=== PATIENT | male | born 1940 | race Caucasian/White ===

== ENCOUNTER 2016-10-23 16:24 | Inpatient (IN) | payer OTHER ==
[2016-10-23 17:17] LABS: MANUAL DIFF NEEDED? NO
[2016-10-23 17:23] LABS: BASO% 0.3 % (0.0-0.8); EOS# 0.02 X1000 (0.0-0.7); EOS% 0.2 % (0.0-10.0); HEMATOCRIT 32.3 % (42.0-52.0); HEMOGLOBIN 11.1 g/dL (14.0-18.0); IMM GRAN# 0.41 X1000 (0.0-0.04); LYMPH# 1.03 X1000 (1.2-3.4); LYMPH% 10.1 % (20.5-51.1); MCHC 34.4 g/dL (33-37); MCV 87.3 FL (81-99); MONO# 0.84 X1000 (0.11-0.59); MONO% 8.2 % (1.7-9.3); MPV 9.4 FL (7.4-10.4); NEUT% 77.2 % (42.2-75.2); PLT 378 X1000 (130-400)
[2016-10-23 17:34] LABS: INR 1.56; PROTIME 16.6 Seconds (9.2-11.7); PTT 34.9 Seconds (22.0-36.0)
[2016-10-23 17:49] LABS: ALBUMIN 3.7 g/dL (3.5-5.0); CALCIUM 8.1 mg/dL (8.8-10.2); MAGNESIUM 1.8 mg/dL (1.5-2.7); POTASSIUM 3.5 mmol/L (3.5-5.1); TOTAL BILIRUBIN 2.14 mg/dL (0.20-1.00)
--- NOTE | 2016-10-23 17:53 | PROVIDER DOCUMENTATION ---
HPI-Musculoskeletal Pain/Inj - GENERAL Chief Complaint: Fall Stated Complaint: DIZZY SPELLS Time Seen by Provider: 10/23/16 16:36 Source: patient, family - HX OF PRESENT ILLNESS-MUSKULOSKELTAL Nature of Presenting Problem: 76 year old WM presents with c/o right flank pain, diffuse abd pain and low back pain. pt reports he has had 3 falls in the last 2-3 weeks from dizziness. last fall was yesterday. pt reports he feels like the room is spinning prior to the falls. denies CP, shortness of breath, difficulty breathing prior to fall. pt in triage has diffuse ecchymosis to entire back, a 15cm by 20cm hematoma to the right flank region. pt reports he was on counmadin until last week when he was evaluated for a fall and told to stop taking. Quality of Pain: reports: aching, dull Severity in ED: mild Onset/Duration: 24 hours ago, other (see HPI) Timing: still present, constant Modifying Factors: improves with: nothing Any recent injury?: Yes Locality of Occurance: Home Similar Symptoms Previously?: Yes Recently seen or treated by another doctor?: Yes - FALL INJURY Location of Pain/Injury: reports: abdomen, back (flank), upper body, lower body , generalized. denies: neck Pain Radiation: reports: no radiation Reason for Fall: reports: other (dizziness) Symptoms prior to fall:: reports: dizzy/lightheaded. denies: fever/chills/ sweaty, chest pain, rapid heart rate, cough, diarrhea, vomiting, GI bleed, headache, seizure Loss of Consciousness: no loss of consciousness Injury Associated Symptoms: reports: dizziness. denies: back/neck pain, chest pain, diaphoresis, headaches, joint pain, muscle aches, nausea, shortness of breath, sensory/motor loss, vomiting, weakness, trouble walking - TRUNK INJURY Location of Injury(s)/Pain: reports: chest, abdomen, ribs, extends to back, generalized Context / Method of Injury: reports: fall, recent trauma history Associated Symptoms: reports: back/neck pain Review of Systems - Adult - REVIEW OF SYSTEMS - ADULT Constitutional: reports: no symptoms reported. denies: chills, fever, fatique Eyes: reports: no symptoms reported. denies: discharge, blurred vision, double vision, redness Ears, Nose, Mouth & Throat: reports: no symptoms reported. denies: ear discharge, ear pain, nose pain, loose teeth, throat pain, throat swelling Cardiovascular: reports: no symptoms reported. denies: chest pain, palpitations , syncope Respiratory: reports: no symptoms reported. denies: chronic cough, cough, shortness of breath, wheezing Gastrointestinal: reports: see HPI, abdominal pain. denies: hematemesis, constipation, diarrhea, difficulty swallowing, frequent heartburn, nausea, poor appetite, rectal bleeding, vomiting Genitourinary: reports: no symptoms reported. denies: dysuria, hematuria, urgency Musculoskeletal: reports: see HPI, back pain. denies: bone pain, frequent leg cramps, joint pain, joint swelling, muscle aches, muscle weakness, neck pain Integumentary: reports: see HPI, skin sores/ulcer. denies: hives, rash Neurological: reports: see HPI, dizziness/vertigo. denies: ataxia, headache/ migraines, loss of balance, numbness, paresthesia, seizure, slurred speech, syncope, tremors Psychiatric: reports: no symptoms reported Endocrine: reports: no symptoms reported Hematologic/Lymphatic: reports: no symptoms reported Allergic/Immunologic: reports: no symptoms reported All Other Systems: Reviewed and Negative Past History - Adult - PAST MEDICAL HISTORY-ADULT Review of Records: reports: Old Records Reviewed, Nursing Assessment Review, Medications Reviewed, Social history reviewed & non-contributory. Major Childhood Illnesses: reports: denies history Cardiovascular: reports: A-Fib, CHF, HTN, hyperlipidemia, PR, other (Stents) Respiratory: reports: COPD (home 02 prn) Gastrointestinal: reports: GERD Obstetrical/Gynecological: reports: denies history Genitourinary: reports: kidney disease Musculoskeletal: reports: denies history Neurological: reports: CVA Endocrine/Immune: reports: Diabetes Other Conditions: reports: denies history - PRIOR SURGERIES/PROCEDURES Surgical/Procedure History: reports: cardiac stent, hernia repair, other (TURP) - PRIOR HOSPITALIZATIONS Prior Hospitalizations: reports: other (Unknown ) - IMMUNIZATION STATUS Childhood Immunizations: UTD, See Nurse Assessment Flu Vaccine: See Nurse Assessment - FAMILY HISTORY Family History: reviewed, not pertinent - SOCIAL HISTORY Smoking: quit greater than 1 year, cigarettes Substance Use: none/never Alcohol Use Frequency: sober (former use) Physical Exam-Injury Related - Physical Exam-Injury Related Initial Vital Signs Reviewed: Yes General Appearance: appears well, alert, no apparent distress. negative: mild distress, moderate distress, severe distress, lethargic, slow to respond, obtunded, combative Eyes: PERRL/EOMI, pale conjunctivae. negative: pink conjunctivae, conjuctival exudate, sclera injected, scleral icterus, subconjunctival hemorrhage, sunken eyes Head, Ears, Nose, Mouth & Throat: normocephalic/atraumatic, moist mucous membranes, normal ENT inspection, TMs normal, pharynx normal. negative: pharyngeal erythema, tonsillar exudate, TM abnormal, TM obscurred by cerumen Neck: non-tender, full range of motion, supple, normal inspection. negative: C- spine tenderness, decresed ROM, ecchymosis, limited range of motion, pain on movement, subcutaneous emphysema, swelling, tender lateral, tender midline, vertebral point tenderness Respiratory: chest non-tender, lungs clear, normal breath sounds, no pleuratic chest pain, no respiratory distress, no accessory muscle use. negative: respiratory distress, decreased breath sounds, accessory muscle use, crackles, rales, rhonchi, stridor, wheezing Cardiovascular: normal peripheral pulses, regular rate, rhythm, no edema, no gallop, no JVD, no murmur Chest/Breast: tenderness (diffuse) Peripheral Pulses: radial (R): 3+, radial (L): 3+, dorsalis-pedis (R): 3+, dorsalis-pedis (L): 3+ Abdominal Exam: normal bowel sounds, non tender, soft, no organomegaly, no pulsatile mass, tenderness. negative: distended, guarding, rigid, rebound, hernia, mass, hepatomegaly, spleenomegaly, McBurney's point tenderness, Arboleda' s sign, obturator sign, prominent aortic pulsations, psoas, Rovsing's sign Male Genitalia: deferred Rectal Exam: deferred Hemoccult Exam: deferred Lymphatic: no adenopathy Back Exam: CVA tenderness, decreased range of motion, ecchymosis (diffuse ecchymosis to entire back region; 15cm by 20cm hematoma to right flank region). negative: normal inspection, vertebral tenderness Extremity: normal range of motion, non-tender, normal gait, normal inspection, no pedal edema, no calf tenderness, normal capillary refill, pelvis stable. negative: abnormal NV exam, calf tenderness, deformity, erythema, inflammation, joint effusion, pulse deficit, pedal edema, slow capillary refill, swelling, tenderness Integumentary: warm/dry, ecchymosis. negative: normal color Neurologic: grossly normal, no motor/sensory deficits. negative: focal weakness , motor weakness, sensory deficit Psych/Mental Status: normal mood/affect, normal thought content, normal thought process, oriented x 3 - Glascow Coma Score Best Eye Response ([place]): (4) open spontaneously Best Verbal Response ([place]): (5) oriented Best Motor Response ([place]): (6) obeys commands [place] Total: 15 Progress - PLAN OF CARE/RESULTS Progress/Plan/Lab Results: Laboratory Tests 10/23/16 10/23/16 10/23/16 16:50 16:50 16:50 WBC 10.19 RBC 3.70 L Hgb 11.1 L Hct 32.3 L MCV 87.3 MCH 30.0 MCHC 34.4 RDW Std Deviation 16.3 H Plt Count 378 MPV 9.4 Immature Gran % (Auto) 4.0 H Neut % (Auto) 77.2 H Lymph % (Auto) 10.1 L Dawson % (Auto) 8.2 Eos % (Auto) 0.2 Baso % (Auto) 0.3 Immature Gran # (Auto) 0.41 H Neut # (Auto) 7.86 H Lymph # (Auto) 1.03 L Dawson # (Auto) 0.84 H Eos # (Auto) 0.02 Baso # (Auto) 0.03 PT INR PTT (Actin FS) D-Dimer 1.06 H Sodium 127 L Potassium 3.5 Chloride 88 L Carbon Dioxide 26 Anion Gap 13 BUN 31 H Creatinine 2.0 H Estimated GFR/1.73 m2 32 BUN/Creatinine Ratio 16 Glucose 264 H Calculated Osmolality 271 Calcium 8.1 L Magnesium 1.8 Total Bilirubin 2.14 H AST 11 ALT 7 L Alkaline Phosphatase 106 Creatine Kinase 42 Troponin T Qvc-K-Pslcyyfsbae Pept Total Protein 6.0 L Albumin 3.7 Globulin 2.3 Albumin/Globulin Ratio 1.6 Blood Type Antibody Screen 10/23/16 10/23/16 10/23/16 16:50 16:50 16:50 WBC RBC Hgb Hct MCV MCH MCHC RDW Std Deviation Plt Count MPV Immature Gran % (Auto) Neut % (Auto) Lymph % (Auto) Dawson % (Auto) Eos % (Auto) Baso % (Auto) Immature Gran # (Auto) Neut # (Auto) Lymph # (Auto) Dawson # (Auto) Eos # (Auto) Baso # (Auto) PT 16.6 H INR 1.56 PTT (Actin FS) 34.9 D-Dimer Sodium Potassium Chloride Carbon Dioxide Anion Gap BUN Creatinine Estimated GFR/1.73 m2 BUN/Creatinine Ratio Glucose Calculated Osmolality Calcium Magnesium Total Bilirubin AST ALT Alkaline Phosphatase Creatine Kinase Troponin T 0.010 [id number]-[id number]-Pdyhtvqdiqg Pept 3991 H Total Protein Albumin Globulin Albumin/Globulin Ratio Blood Type Antibody Screen 10/23/16 16:50 WBC RBC Hgb Hct MCV MCH MCHC RDW Std Deviation Plt Count MPV Immature Gran % (Auto) Neut % (Auto) Lymph % (Auto) Dawson % (Auto) Eos % (Auto) Baso % (Auto) Immature Gran # (Auto) Neut # (Auto) Lymph # (Auto) Dawson # (Auto) Eos # (Auto) Baso # (Auto) PT INR PTT (Actin FS) D-Dimer Sodium Potassium Chloride Carbon Dioxide Anion Gap BUN Creatinine Estimated GFR/1.73 m2 BUN/Creatinine Ratio Glucose Calculated Osmolality Calcium Magnesium Total Bilirubin AST ALT Alkaline Phosphatase Creatine Kinase Troponin T Ewp-[id number]-Vfvorhcvmtm Pept Total Protein Albumin Globulin Albumin/Globulin Ratio Blood Type A POSITIVE Antibody Screen NEGATIVE Orders Category Date Time Status Cardiac Monitoring DIRECTED Care 10/23/16 16:37 Active Orthostatic Vital Signs NOW Care 10/23/16 16:44 Active Saline Loc NOW Care 10/23/16 16:37 Active HEAD/C-SPINE W/O CONTRAST [CT] Stat Exams 10/23/16 16:56 Draft THORAX/ABDOMEN/PELVIS W/O CONT [CT] Stat Exams 10/23/16 16:56 Taken cxr [CHEST-1 VIEW] [RAD] Stat Exams 10/23/16 19:38 Ordered CBC WITH ELECTRONIC DIFF [HEME] Stat Lab 10/23/16 16:50 Completed CK PROFILE [SP CHEM] Stat Lab 10/23/16 16:50 Completed COMPREHENSIVE METABOLIC PANEL [CHEM] Stat Lab 10/23/16 16:50 Completed D-DIMER [CHEM] Stat Lab 10/23/16 16:50 Completed MAGNESIUM [CHEM] Stat Lab 10/23/16 16:50 Completed PRO B-NATRIURETIC PEPTIDE Stat Lab 10/23/16 16:50 Completed PROTIME WITH INR [COAG] Stat Lab 10/23/16 16:50 Completed PTT [COAG] Stat Lab 10/23/16 16:50 Completed TROPONIN T Stat Lab 10/23/16 16:50 Completed TYPE & SCREEN [BBK] Stat Lab 10/23/16 16:50 Completed 0.9% Sodium Chloride Inj [Ns] 1,000 ml Med 10/23/16 19:39 Active IV 150 mls/hr EKG [EKG] Stat Ther 10/23/16 16:37 Ordered Vital Signs - 24 hr 10/23/16 10/23/16 10/23/16 16:40 18:30 18:47 Temperature 98.2 F Pulse Rate 65 58 L Pulse Rate [ 59 L Sitting] Pulse Rate [ 59 L Supine] Respiratory 14 Rate Blood Pressure 122/64 123/71 Blood Pressure 99/64 [Sitting] Blood Pressure 121/64 [Supine] O2 Sat by Pulse 100 100 Oximetry Reviewed radiology, labs, H&P with Dr. Huntley, agrees with plan of care and treatment. - XRAY 1 XRAY Study: Chest Impression: Abnormal (RUL mass) - CT/MRI 1 CT Study: Thorax Impression: Abnormal (see CT report for extensive findings.) 2 CT Study: Abdomen, Pelvis Impression: Abnormal (see report for extensive findings.) - CONSULTS/PCP/HOSPITALIST Notification #1 *Consult/PCP/Hospitalist*: Dr. Rodriguez Time Discussed: 19:50 Consult Disposition: Will see in ED, Admit Departure - Departure Time of Disposition Order: 19:51 DIAGNOSIS: Hyponatremia, Mass Fall Qualifiers: Encounter type: initial encounter Qualified Code(s): W19.XXXA - Unspecified fall, initial encounter Disposition: ADMITTED INPATIENT 09 Certified Medical Emergency: Emergent Condition: Stable Referrals: Susana Gonzalez MD [Primary Care Provider] - Attestation - Physician/ EKTA Attestation Patient care was provided by Advanced Practice Provider:: Yes Advanced Practice Provider:: Johnny Garsia Advanced Practice Provider documentation review:: The Mid-level provider documentation, treatment plan and medical decision making was reviewed by the physician who agrees with all treatment and medical decision making by the [facility].
--- NOTE | 2016-10-23 19:07 | ED EKG INTERP ---
EKG Interpretation - EKG Time of EKG reading by physician:: 19:04 EKG Read and Signed by:: Skyler Huntley EKG Interpretation (*Must complete 3 of following elements*): Abnormal (ST & T wave abnormality, consider lateral ischemia Possible posterior infarct; Wayne rhythm - When compared to previous EKG from 10/13/2016) Rate: 61 Rhythm: Undetermined rhythm Attestation - Scribe Verification/Attestation Scribe:: Dmitri Garcia Acting as Scribe for:: Skyler Huntley Scribe documention review:: This chart was documented by a scribe and accurately reflects the service the provider performed and the decisions made by the provider.
[2016-10-23] MEDS ORDERED: NS 1,000 ML IV ONE (19:39)
--- NOTE | 2016-10-23 19:51 | Diag Imaging Result Document ---
PROCEDURE NAME: HEAD/C-SPINE W/O CONTRAST - 10/23/2016 CT BRAIN AND CERVICAL SPINE WITHOUT CONTRAST: BRAIN WITHOUT: FINDINGS: No parenchymal hemorrhage. No epidural or subdural hematoma. No subarachnoid hemorrhage. No skull fracture. There is mild atrophy with mild chronic microvascular ischemic changes. No hydrocephalus. No mass identified on this noncontrasted exam. Prominent mucosal thickening in the left maxillary sinus. IMPRESSION: 1. No hemorrhage. No injury. 2. Mild atrophy with mild microvascular ischemic changes. 3. Left maxillary sinusitis. CT CERVICAL SPINE WITHOUT CONTRAST: FINDINGS: There are prominent degenerative changes throughout the cervical spine. No precervical soft tissue swelling. No subluxation. No fracture. IMPRESSION: 1. No acute bony injury. 2. Prominent degenerative changes. A preliminary report was given at 6:41 p.m.
--- NOTE | 2016-10-23 20:00 | Diag Imaging Result Document ---
PROCEDURE NAME: THORAX/ABDOMEN/PELVIS W/O CONT - 10/23/2016 CT CHEST WITHOUT CONTRAST: FINDINGS: There are scattered calcified pleural plaques with scattered granuloma. A 17 mm spiculated lesion is present posteriorly in the right upper lobe. No pleural effusions. No thoracic aortic aneurysm. Prominent atherosclerosis including the coronary arteries. No cardiomegaly. No displaced acute fracture. Questionable subacute fracture to the right anterior seventh rib. No other injury identified. IMPRESSION: 1. There is a 17 mm spiculated mass in the right upper lobe. 2. There is evidence of a prior granulomatous infection, in addition to mild emphysema. 3. Questionable subacute right rib fracture. No other evidence of acute injury. 4. Prominent atherosclerosis. ABDOMEN AND PELVIS WITHOUT ORAL OR INTRAVENOUS CONTRAST. FINDINGS: Exam is limited for injury without intravenous contrast. Unable to exclude an injury to the liver and spleen without intravenous contrast. There is no fluid about the liver or spleen. The spleen is not enlarged. There is a 13 mm fat containing nodule in the left adrenal gland. Normal right adrenal gland. No inflammation about the pancreas. There is a calcified stone within the gallbladder. No inflammation about the gallbladder. This was present on the prior study of 04/06/2016. There are several small hypodense renal lesions which may be cysts in addition to a 4.4 cm cyst arising from the posterior right kidney. No retroperitoneal hematoma. No renal stones. No hydronephrosis. Prominent atherosclerosis. No abdominal aortic aneurysm. No bowel obstruction. No free fluid within the pelvis. The urinary bladder is moderately distended. No pelvic mass. No free air. There are degenerative changes throughout the lumbar spine. No acute fracture. IMPRESSION: 1. Although no acute injury is identified, I am unable to exclude an acute injury without intravenous contrast. 2. Cholelithiasis. 3. Stable left adrenal nodule. 4. Renal cysts. 5. Degenerative spine changes with mild scoliosis. A preliminary report was given at 6:41 p.m.
--- NOTE | 2016-10-23 23:27 | HISTORY AND PHYSICAL ---
PRIMARY CARE PHYSICIAN: Dr. Gonzalez. CHIEF COMPLAINT: Fall. HISTORY OF PRESENTING ILLNESS: A 76-year-old male with a history of chronic kidney disease stage 3, diabetes mellitus type 2, hypertension, paroxysmal atrial fibrillation apparently had a fall several days ago and had some hematoma on is back. He had presented to emergency department because he felt worse and he was evaluated. He had imaging done which did also show that he had a right upper lobe lung mass. Due to these presenting findings it was thought that he would need hospitalization for further evaluation and management. At the time of my examination he had denied any headache, fever, chills, chest pain, shortness of breath, hemoptysis or weight changes but just complained of back pain. PAST MEDICAL HISTORY: Includes chronic kidney disease stage 3, hypertension, diabetes mellitus type 2, coronary artery disease, paroxysmal atrial fibrillation, CVA. PAST SURGICAL HISTORY: Coronary stent, TURP, hernia repair. ALLERGIES: To amoxicillin, Augmentin. CURRENT MEDICATIONS: As listed in MAR. SOCIAL HISTORY: He is a former smoker. Admits to social alcohol use. Denies any illicit drug use. FAMILY HISTORY: Positive for coronary disease mother and father. REVIEW OF SYSTEMS: Twelve point review of systems is as in HPI. Other systems negative. PHYSICAL EXAMINATION: GENERAL: Cooperative, friendly male. He is resting comfortably now. VITAL SIGNS: Temperature 98.2 degrees, pulse 65, respiration 14, blood pressure 112/64, saturating 100%. HEENT: Extraocular movements intact. PERRLA. NECK: No masses. CHEST: Bibasilar rales. CARDIOVASCULAR: Regular rate and rhythm. ABDOMEN: Soft. Positive bowel sounds. EXTREMITIES: No edema. NEURO: He is awake, alert, oriented x3. : No bladder distention. SKIN: Warm and multiple hematomas on his back LABORATORIES AND STUDIES: WBC 10.19, hemoglobin 11.1, hematocrit 32.3, platelets 378,000. Sodium 127, potassium 3.5, chloride 88, CO2 of 26, BUN is 31, creatinine is 2.0. ProBNP is 3991. Digitalis level is 2.1. CTA of the chest, abdomen, pelvis shows a 70 mm spiculated mass in the right upper lobe and there is a possible subacute rib fracture on the right side. ASSESSMENT: 1. Status post fall. 2. Rib fracture of the right side. 3. Hematoma on back. 4. Right upper lobe lung mass. 5. Diabetes mellitus type 2. 6. Hyponatremia PLAN: 1. Will admit patient to medical floor. 2. Continue with support treatment with pain control. 3. Will consult Pulmonary for evaluation of lung mass. 4. Monitor blood glucose closely. 5. Will continue to hold his anticoagulation for his atrial fibrillation due to hematoma. 6. Put patient on DVT prophylaxis with SCD. 7. Please note that the rib fracture is in the anterior 7th rib. 8. fluid restrict PO, and monitor electrolytes 9. Will continue to follow and reassess. MTDD
[2016-10-24] MEDS ORDERED: ZOFRAN IV PRN (01:09)
[2016-10-24 05:47] LABS: MANUAL DIFF NEEDED? NO
[2016-10-24 05:51] LABS: BASO% 0.4 % (0.0-0.8); EOS# 0.07 X1000 (0.0-0.7); EOS% 0.7 % (0.0-10.0); HEMOGLOBIN 10.4 g/dL (14.0-18.0); IMM GRAN# 0.38 X1000 (0.0-0.04); IMM GRAN% 3.8 % (0.0-0.5); LYMPH# 1.52 X1000 (1.2-3.4); LYMPH% 15.2 % (20.5-51.1); MCH 29.5 PG (27-31); MCHC 33.5 g/dL (33-37); MCV 88.1 FL (81-99); MONO# 0.96 X1000 (0.11-0.59); MONO% 9.6 % (1.7-9.3); MPV 9.2 FL (7.4-10.4); NEUT% 70.3 % (42.2-75.2); PLT 325 X1000 (130-400); RBC 3.52 XMIL (4.7-6.1)
[2016-10-24 06:01] LABS: INR 1.45; PROTIME 15.4 Seconds (9.2-11.7)
[2016-10-24] MEDS: SYNTHROID PO SCH (06:28)
[2016-10-24 06:30] LABS: CALCIUM 8.6 mg/dL (8.8-10.2)
--- NOTE | 2016-10-24 06:50 | Diag Imaging Result Document ---
PROCEDURE NAME: CHEST-1 VIEW - 10/23/2016 PORTABLE CHEST 2 VIEWS: COMPARISON: 10/13/2016. FINDINGS: The lungs are hyperexpanded. The nodule seen on the recent CT in the right upper lobe is not appreciated on the plain films. Heart is not enlarged. The pulmonary vessels are small. No pleural effusions. No pneumonia. IMPRESSION: 1. Emphysema. 2. I do not see the nodule on the plain films that was recently identified on the prior CT. MTDD
[2016-10-24] MEDS ORDERED: FLUZONE QUAD 2016-2017 SYRINGE IM ONE (07:59)
[2016-10-24] MEDS ORDERED: DEMADEX PO SCH (09:00)
[2016-10-24] MEDS ORDERED: CARDIZEM CD PO SCH (09:00)
[2016-10-24] MEDS ORDERED: LANOXIN PO SCH (09:00)
[2016-10-24] MEDS: LEXAPRO PO SCH (10:49)
[2016-10-24] MEDS: ROCALTROL PO SCH (10:49)
[2016-10-24 14:45] LABS: HEMATOCRIT 30.5 % (42.0-52.0); HEMOGLOBIN 10.4 g/dL (14.0-18.0); MCH 30.2 PG (27-31); MCHC 34.1 g/dL (33-37); MCV 88.7 FL (81-99); MPV 8.9 FL (7.4-10.4); RBC 3.44 XMIL (4.7-6.1)
--- NOTE | 2016-10-24 15:29 | PROGRESS NOTE ---
DATE: 10/24/2016 SUBJECTIVE: The patient is complaining of having dizziness still and generalized weakness. He has been falling several times within the past 2 weeks, has a huge hematoma on the right back. The patient stated that he could not walk one wall to the next because of the dizziness. As long as he is sitting still, he is feeling well. He denies having any fever or chills. Denies having any recent sickness or sick contact. He fell and broke 1 of his ribs and causing bruises on his back and his chest as well as his abdomen. OBJECTIVE: Vital signs: Blood pressure 122/55, pulse of 50 to 52, respiration 18, temperature 97.8 degrees. Saturation of 100% on room air. General: Thin white male in no acute distress. HEENT: Anicteric sclerae. Clear conjunctivae. Neck: Supple. No JVD. No bruit. Cardiovascular: Bradycardic. Chest, abdomen and back: Bruises at different stages of healing. Tender to palpation. Has a large hematoma that is about 20 x 20 cm on the right back. Lungs: Clear to auscultation bilaterally. GI: Soft, nontender even though he has had bruise. Lower extremity: No clubbing, cyanosis, or edema. LABORATORY: His white count 9.98, hemoglobin 10.4, hematocrit 31, platelets of 325,000. PT/INR noted. Sodium 133, potassium 4, chloride 92, bicarb 26, BUN 31, creatinine 1.9, glucose 106, proBNP 3991. ASSESSMENT AND PLAN: This is a 76-year-old white male admitted for recurrent falling, dizziness and lightheadedness. 1. Dizziness and lightheadedness probably secondary to his bradycardia. We will hold his digoxin and diltiazem. His digoxin level is elevated. We will recheck his level tomorrow. We will readjust his medication for his rate control. 2. Falling, may be secondary to her bradycardia. We will consult Physical Therapy. We will admit the patient to inpatient service. He needs to be here for several days for us to adjust his medications, and he still has symptomatic bradycardia. 3. We stopped his warfarin as a major contraindication since he is having falling. 4. Diabetes type 2. Start the patient on sliding scale insulin. 5. History of heart failure. We will keep him on torsemide for now and we will continue to follow the patient closely in house because of physical therapy.
[2016-10-24] MEDS: ALBUTEROL NEB INH SCH ×2 (16:49→23:02)
--- NOTE | 2016-10-24 17:05 | CONSULTATION ---
DATE OF CONSULTATION: 10/24/2016 CONSULTING PHYSICIAN: PRIMARY CARE PHYSICIAN: Susana Gonzalez MD PRIMARY LOAN SERVICE OFFICER: Bradly Browne MD SALES COMPENSATION ANALYST: Franco Her MD REASON FOR CONSULT: Right upper lobe chest mass with associated frequent falls and weight loss and weakness. IMPRESSION: 1. Right upper lobe posterior segment chest mass. 2. Chronic obstructive pulmonary disease. 3. Atrial fibrillation. 4. Weight loss of approximately 38 pounds since June. 5. Congestive heart failure. 6. Chronic kidney disease. RECOMMENDATIONS: He will have his Coumadin held and at the present time consult Interventional Radiology for a CT fine-needle aspiration of the mass. Continue and give him some inhaled beta agonists. Monitor his cardiac status closely and follow along with you closely. We will also check a thyroid profile. HISTORY OF PRESENT ILLNESS: This is an extremely pleasant 76-year-old, male, who has had failing health over the last several months. He states he has had some bouts of falls where he states he has some blurred vision and dizziness. He was this past mid June years with his life who was in a residential. He lives alone and he states he has been on and off his Coumadin secondary to the difficulty keeping it regulated. He fell this time in his room, tripped over a box of books and landed on the lower portion of the mirror on a dresser-type furniture where he has developed a large right posterior hematoma with bruising on the left chest and around his abdomen. He presented to the hospital secondary to this and overall weakness. PAST MEDICAL HISTORY: Stage 3 chronic kidney disease. Paroxysmal atrial fibrillation. CVA. Diabetes mellitus type 2. Hypertension. Ischemic heart disease. Hypothyroidism. SURGICAL HISTORY: He has had a coronary stent, TURP and a hernia repair. ALLERGIC: Amoxicillin and Augmentin. HOME MEDICATIONS: Allopurinol, atorvastatin, Calcitrol, Lexapro, Synthroid, Demadex. Apparently he had Cardizem CD, Lanoxin, all daily. He does have oxygen at home 2 L he uses as needed as well as an inhaler, he is not sure of which, for mild COPD. SOCIAL HISTORY: He lives alone. He is a former smoker of three packs a day up to 35 years, having quit 35 years ago. He again is , had a 38 pound weight loss. Social alcohol. No illicit drug use. FAMILY HISTORY: Positive for coronary artery disease in mother and father. REVIEW OF SYSTEMS: Positive for the blurred vision and some dizziness. He denies any headaches. No difficult or painful swallowing. No nausea, vomiting, diarrhea. No dysuria, polyuria, just general weakness. No skin rashes or bruises other than the fall. No history of blood clots or phlebitis. Fourteen point review of systems is negative except for the features mentioned above. PHYSICAL EXAMINATION: General: He is sitting up, in no acute distress on room air. Vital signs: He has a temperature of 97.8, pulse of 52, blood pressure is 122/55 with a respiratory rate of 18, O2 saturation is 100% on room air. HEENT: He is atraumatic and normocephalic. PERRLA. Oral mucosa is without erythema. Neck: Supple. No JVD. Chest: Reveals bilateral equal breath sounds which are clear, but diminished in bases. Cardiac: S1, S2. No appreciable murmur, gallop or rub. Abdomen: Soft, nontender. Positive bowel sounds x4. Extremities: Reveals no cyanosis, clubbing, or edema. Neurologically: Grossly nonfocal. Alert and oriented x3. Skin: Warm and dry. There is a large right posterior hematoma. The left chest is bruised in the posterior area as well as around his abdominal wall is bruised. : He is voiding without difficulty. PERTINENT DATA: The CT of his brain and cervical spine showed no acute bony injury. Prominent degenerative changes. The head with no hemorrhage, some mild atrophy and left maxillary sinusitis. The CT of the chest, abdomen and pelvis was reviewed. There is a 17 mm spiculated mass in the right upper lobe, mild emphysematous changes. Questionable right subacute rib fracture. Prominent atherosclerosis. The abdomen shows stable left adrenal nodule. In comparison, no change from 04/06/2016 renal cyst. Degenerative spine changes and mild scoliosis. Cholelithiasis. Laboratory Data shows a white count of 9.9, hemoglobin 10.4, hematocrit 31, and platelets of 325,000. His INR is down to 1.4 with a PT of 15.4, PTT 34.9. CO2 levels 2.1. Sodium 133, potassium 4, chloride 92, BUN of 31, creatinine 1.9. Calcium 8.6, proBNP 3391. Troponin 0.01. Dictated by LUPE Recio for Shaheen Lopez MD
[2016-10-24] MEDS: HUMALOG SUBQ SCH ×2 (19:17→22:25)
[2016-10-24] MEDS ORDERED: COUMADIN PO SCH (21:00)
[2016-10-24] MEDS: AMARYL PO SCH (22:09)
[2016-10-24] MEDS: LIPITOR PO SCH (22:10)
[2016-10-25] MEDS: SYNTHROID PO SCH ×2 (05:49→17:02)
[2016-10-25 06:27] LABS: MANUAL DIFF NEEDED? NO
[2016-10-25 06:33] LABS: BASO% 0.4 % (0.0-0.8); HEMATOCRIT 30.6 % (42.0-52.0); HEMOGLOBIN 10.3 g/dL (14.0-18.0); IMM GRAN% 2.9 % (0.0-0.5); LYMPH# 1.56 X1000 (1.2-3.4); LYMPH% 14.9 % (20.5-51.1); MCH 29.8 PG (27-31); MCHC 33.7 g/dL (33-37); MCV 88.4 FL (81-99); MONO# 0.83 X1000 (0.11-0.59); MPV 9.4 FL (7.4-10.4); NEUT% 72.8 % (42.2-75.2); PLT 304 X1000 (130-400); RBC 3.46 XMIL (4.7-6.1)
[2016-10-25 06:46] LABS: INR 1.21; PROTIME 12.9 Seconds (9.2-11.7)
[2016-10-25 06:47] LABS: ALBUMIN 3.1 g/dL (3.5-5.0); CALCIUM 8.5 mg/dL (8.8-10.2); POTASSIUM 3.8 mmol/L (3.5-5.1); TOTAL BILIRUBIN 1.75 mg/dL (0.20-1.00); TOTAL PROTEIN 5.2 g/dL (6.3-8.3)
[2016-10-25 06:54] LABS: FREE T4 1.3 ng/dL (0.93-1.70)
[2016-10-25] MEDS: ALBUTEROL NEB INH SCH ×3 (07:50→23:10)
--- NOTE | 2016-10-25 08:06 | Diag Imaging Result Document ---
PROCEDURE NAME: CHEST-1 VIEW - 10/25/2016 ERECT AP PORTABLE CHEST, 10/25/2016 AT 0610 HOURS: FINDINGS: There is since less optimal inspiration than on 10/23/2016. There is increasing opacification of the right base. IMPRESSION: Questionable atelectasis right lower lobe.
[2016-10-25] MEDS ORDERED: DEMADEX PO SCH (09:00)
[2016-10-25] MEDS: ROCALTROL PO SCH (09:04)
[2016-10-25] MEDS: HYGROTON PO SCH (09:04)
[2016-10-25] MEDS: LEXAPRO PO SCH (09:05)
[2016-10-25] MEDS: ALDACTONE PO SCH (09:05)
[2016-10-25] MEDS: AMARYL PO SCH ×2 (09:05→20:07)
[2016-10-25] MEDS: ZYLOPRIM PO SCH (09:05)
[2016-10-25] MEDS: HYTRIN PO SCH (09:09)
[2016-10-25] MEDS: NS 1,000 ML IV SCH ×2 (09:09→23:24)
--- NOTE | 2016-10-25 09:36 | EKG Report ---
Test Performed on : 10/23/2016 4:42:57 PM Test Reason : Chest Pain Blood Pressure : / mmHG Vent. Rate : 061 BPM Atrial Rate : 053 BPM P-R Int : 000 ms QRS Dur : 092 ms QT Int : 504 ms P-R-T Axes : 000 052 114 degrees QTc Int : [address] & T wave abnormality, consider lateral ischemia Abnormal ECG When compared with ECG of 23-OCT-2016 16:42, (Unconfirmed) Current undetermined rhythm precludes rhythm comparison, needs review Unconfirmed Result
[2016-10-25] MEDS: HUMALOG SUBQ SCH ×3 (17:02→20:09)
--- NOTE | 2016-10-25 17:04 | Diag Imaging Result Document ---
PROCEDURE NAME: US RENAL 2 (RETROPER) COMPLETE - 10/25/2016 RENAL ULTRASOUND: COMPARISON: 04/07/2016. FINDINGS: The renal cortical echotexture appears to be somewhat increased bilaterally, which is a nonspecific indicator of medical renal disease. There are a few small cysts involving the left kidney measuring up to 7 mm and there multiple right renal cysts measuring up to 4.7 cm. At the lower pole of the left kidney there is a hypoechoic solid-appearing nodule that measures up to 1.3 cm and is stable. No definite Doppler flow is associated with the mass. No new masses are identified and there is no evidence of hydronephrosis. The urinary bladder is grossly unremarkable. IMPRESSION: 1. Small hypoechoic solid-appearing nodule at the lower pole of the left kidney that appears to be stable in size as compared to the previous study. 2. Bilateral simple-appearing renal cysts as described. 3. Somewhat increased renal cortical echotexture, which is a nonspecific indicator of medical renal disease.
--- NOTE | 2016-10-25 17:44 | PROGRESS NOTE ---
DATE: 10/25/2016 SUBJECTIVE: The patient is resting comfortably in bed. He has no complaints at this time. OBJECTIVE: Vital Signs: Temperature 98.2 degrees, blood pressure 112/58, heart rate 55, respirations 18, O2 saturations 96% on room air. General: This is an elderly, chronically ill- appearing male, lying in bed, in no acute distress. Head: Normocephalic, atraumatic. Heart: S1, S2 normal. Regular rate and rhythm. Lungs: Clear to auscultation bilaterally. No wheezing. No rales. No rhonchi. Abdomen: Positive bowel sounds. Soft, nontender, nondistended. Extremities: No edema. No cyanosis. No calf tenderness. Neurologic: The patient is alert and oriented x3. No focal neurologic deficits noted. LABS: White blood cell count 10, hemoglobin 10, hematocrit 30, platelets 304,000. INR 1.2, sodium 133, potassium 3.8, chloride 95, CO2 28, BUN 37, creatinine 2.1, glucose 104. ASSESSMENT AND PLAN: 1. Right upper lobe mass. We will await further recommendations from Pulmonary regarding possible biopsy. 2. Acute kidney injury on chronic kidney disease stage 3. We will continue with gentle IV fluid hydration. We will check urine electrolytes and a renal ultrasound. 3. Recent fall. The patient states that he has not been falling frequently at home. He reports that he just tripped and fell. 4. Benign prostatic hypertrophy. Continue on terazosin. 5. Diabetes mellitus type 2. Continue on Amaryl. 6. History of gout. Continue on allopurinol. 7. Hypothyroidism. Continue on Synthroid. 8. Paroxysmal atrial fibrillation. The patient's Coumadin is on hold for possible biopsy. The patient is currently rate controlled. 9. Coronary artery disease. Aware. 10. Disposition. We will await further recommendations from the edge grinder machine regarding the patient's lung mass.
[2016-10-25] MEDS: LIPITOR PO SCH (20:07)
[2016-10-26 04:04] LABS: UR CREAT RANDOM 66.6 mg/dL (14-26)
[2016-10-26 04:25] LABS: UR PROT RANDOM 4.7 mg/dL
[2016-10-26 06:13] LABS: HEMATOCRIT 30.2 % (42.0-52.0); HEMOGLOBIN 9.9 g/dL (14.0-18.0); MCH 30.3 PG (27-31); MCHC 32.8 g/dL (33-37); MCV 92.4 FL (81-99); MPV 9.3 FL (7.4-10.4); RBC 3.27 XMIL (4.7-6.1)
[2016-10-26] MEDS: HUMALOG SUBQ SCH ×4 (06:35→21:34)
[2016-10-26] MEDS: SYNTHROID PO SCH (06:36)
[2016-10-26 06:37] LABS: ALBUMIN 3.1 g/dL (3.5-5.0); POTASSIUM 3.8 mmol/L (3.5-5.1)
[2016-10-26] MEDS: ALBUTEROL NEB INH SCH ×3 (07:18→22:39)
[2016-10-26 08:11] LABS: INR 1.19; PROTIME 12.6 Seconds (9.2-11.7)
--- NOTE | 2016-10-26 11:21 | Diag Imaging Result Document ---
PROCEDURE NAME: CHEST-2 VIEWS - 10/26/2016 INSPIRATORY AND EXPIRATORY CHEST, TWO VIEWS: COMPARISON: 10/25/2016. FINDINGS: Films are taken following CT-guided lung biopsy. There is a [id number]-[id number] sized apical pneumothorax. This measures 2.9 cm superiorly in the midline on the inspiratory film, but 3.8 cm on the expiratory film. There is also atelectasis in the right lung base. The left lung remains clear. IMPRESSION: Vtaed-ft-[id number] sized right-sided pneumothorax following CT-guided lung biopsy. The floor and nurse were notified of these findings. Films will be repeated in 2 hours.
[2016-10-26] MEDS: NORCO-7.5 PO PRN (12:12)
--- NOTE | 2016-10-26 13:46 | PROGRESS NOTE ---
DATE: 10/26/2016 SUBJECTIVE: The patient is resting comfortably in bed. He is awaiting a CT-guided biopsy. OBJECTIVE: Vital Signs: Temperature 97.6 degrees, blood pressure 107/46, heart rate 74, respirations 18, O2 saturation 100% on room air. General: This is a elderly male, lying in bed, in no acute distress. Head: Normocephalic atraumatic. Heart: S1, S2. Normal. Regular rate and rhythm. Lungs: Clear to auscultation bilaterally. Abdomen: Positive bowel sounds. Soft, nontender, nondistended. Extremities: No edema. No cyanosis. No calf tenderness. Neurologic: The patient is alert and oriented x3. LABS: White blood cell count 10, hemoglobin 9.9, hematocrit 30, platelets 240,000. Sodium 139, potassium 3.8, chloride 99, CO2 27, BUN 34, creatinine 1.9, glucose 91. Albumin 3.1. ASSESSMENT AND PLAN: 1. Right upper lobe lung mass. The patient is scheduled to undergo a CT-guided biopsy today. Pulmonary is following. 2. Stage 3 chronic kidney disease. Stable. 3. Benign prostatic hypertrophy. Continue on terazosin. 4. Diabetes mellitus type 2. Continue on Amaryl. 5. History of gout. Continue on allopurinol. 6. Hypothyroidism. Continue on Synthroid. 7. Paroxysmal atrial fibrillation. After the patient undergoes his biopsy today we plan on restarting the Coumadin tomorrow. 8. Coronary artery disease. Aware.
--- NOTE | 2016-10-26 14:10 | Diag Imaging Result Document ---
PROCEDURE NAME: CHEST-2 VIEWS - 10/26/2016 INSPIRATORY AND EXPIRATORY RADIOGRAPH OF THE CHEST: COMPARISON: 10/26/2016. FINDINGS: The post biopsy right apical pneumothorax is again identified. It is somewhat larger than the previous study. It measures up to 4.6 cm at the midline on the inspiratory radiograph. It probably occupies approximately 20%-30% of the right hemithorax. The chest is stable, otherwise. Cardiac silhouette and central vasculature are unchanged. IMPRESSION: Right apical pneumothorax that has increased somewhat in size during the interval. Continued close surveillance is recommended.
--- NOTE | 2016-10-26 16:28 | Diag Imaging Result Document ---
PROCEDURE NAME: CHEST-2 VIEWS - 10/26/2016 INSPIRATORY EXPIRATORY CHEST TWO VIEWS: TIME: 1612 COMPARISON: Compared to films taken at 1:10 p.m. FINDINGS: The right apical pneumothorax measures 4.5 cm superiorly on the inspiratory film. This is unchanged from the prior inspiratory chest. The pneumothorax measures 5.6 cm superiorly on the expiratory chest. This has also not increased in size. The left lung remains well expanded and clear. The heart remains mildly prominent. IMPRESSION: Stable moderate sized right sided pneumothorax.
[2016-10-26] MEDS: AMARYL PO SCH ×2 (16:59→21:33)
[2016-10-26] MEDS: ROCALTROL PO SCH (17:08)
[2016-10-26] MEDS: ALDACTONE PO SCH (17:08)
[2016-10-26] MEDS: ZYLOPRIM PO SCH (17:08)
[2016-10-26] MEDS: HYTRIN PO SCH (17:08)
[2016-10-26] MEDS: HYGROTON PO SCH (17:09)
[2016-10-26] MEDS: LEXAPRO PO SCH (17:09)
--- NOTE | 2016-10-26 17:29 | CONSULTATION ---
DATE OF CONSULTATION: 10/26/2016 CHIEF COMPLAINT: Right pneumothorax. HISTORY: This is a 76-year-old patient of Dr. Gonzalez, who was discovered to have a right upper lung mass. He underwent a CT-guided biopsy today and suffered a pneumothorax. The pneumothorax increased at first, but it seems to have stabilized over the last 3 hours. He is without significant pain, without significant shortness of breath and is comfortable while sitting and lying in the bed. OTHER MEDICAL PROBLEMS: Include stage 3 chronic kidney disease, paroxysmal atrial fibrillation, a history of CVA, type 2 diabetes, hypertension, ischemic heart disease. Hypothyroidism. PREVIOUS SURGERY: Includes a TUR, hernia repair and a coronary stent. MEDICATIONS: At home include allopurinol, atorvastatin, calcitriol, Lexapro, Synthroid, Demadex, Cardizem, Lanoxin, home oxygen and an inhaler. ALLERGIES: He is allergic to amoxicillin and Augmentin. SOCIAL HISTORY: Former smoker. He is a . FAMILY HISTORY: Pertinent for coronary artery disease. REVIEW OF SYSTEMS: As noted above. PHYSICAL EXAM: Vital Signs: Afebrile, heart rate 75, respiratory rate 18, blood pressure 105/44. His O2 saturation is 97-100%. Neck: No cervical adenopathy. Lungs: Slightly diminished breath sounds on the right. Heart: Regular rate and rhythm. Abdomen: Soft, nontender. ASSESSMENT: Post biopsy pneumothorax, that is a 20-30%. He is relatively asymptomatic. PLAN: We offered him a chest tube at this time, but he would rather us wait and see if it worsens. I said we could do that. We will do another chest x-ray later to see if it progresses.
[2016-10-26] MEDS: LIPITOR PO SCH (21:33)
[2016-10-27] MEDS: HUMALOG SUBQ SCH ×4 (06:37→21:50)
[2016-10-27] MEDS: SYNTHROID PO SCH (06:45)
[2016-10-27 07:00] LABS: CALCIUM 8.3 mg/dL (8.8-10.2); POTASSIUM 3.7 mmol/L (3.5-5.1)
[2016-10-27] MEDS: ALBUTEROL NEB INH SCH ×3 (07:30→19:34)
--- NOTE | 2016-10-27 07:46 | Diag Imaging Result Document ---
PROCEDURE NAME: CHEST-PORTABLE - 10/27/2016 SINGLE FRONTAL RADIOGRAPH OF THE CHEST: COMPARISON: 10/26/2016. FINDINGS: The known right apical pneumothorax appears slightly smaller than the previous study. It measures 3.6 cm in thickness (4.3 cm previously on the inspiratory radiograph). No new consolidations are identified. Cardiac silhouette is stable. IMPRESSION: Slight decrease in size of the right apical pneumothorax.
--- NOTE | 2016-10-27 08:55 | Diag Imaging Result Document ---
PROCEDURE NAME: CHEST-PORTABLE - 10/27/2016 PORTABLE CHEST X-RAY, 10/27/2016 AT 0825 HOURS: COMPARISON: 0550 hours. FINDINGS: There has been placement of a right basilar chest tube in good position. The right pneumothorax has resolved. Stable cardiomegaly. No new infiltrates. IMPRESSION: Good right chest tube placement with resolution of the pneumothorax.
[2016-10-27] MEDS: ALDACTONE PO SCH (09:00)
[2016-10-27] MEDS: HYTRIN PO SCH (09:04)
[2016-10-27] MEDS: LEXAPRO PO SCH (09:04)
[2016-10-27] MEDS: AMARYL PO SCH ×2 (09:05→21:50)
[2016-10-27] MEDS: HYGROTON PO SCH (09:05)
[2016-10-27] MEDS: ZYLOPRIM PO SCH (09:05)
[2016-10-27] MEDS: ROCALTROL PO SCH (09:05)
--- NOTE | 2016-10-27 09:27 | Diag Imaging Result Document ---
PROCEDURE NAME: CT GUIDED BIOPSY LUNG - 10/26/2016 CT-GUIDED RIGHT LUNG BIOPSY: COMPARISON: 10/23/2016. FINDINGS: Risks, benefits, and alternatives were discussed with the patient, and informed consent was obtained. The patient was placed in a prone position and was prepped and draped in sterile fashion. Local anesthesia was achieved with 1% lidocaine solution. With CT guidance, an 18-gauge coaxial biopsy needle system was used to obtain five 1.3 cm core biopsies of the known suspicious right upper lobe lung nodule. There were no known complications immediately after the procedure. A chest radiograph is to follow. IMPRESSION: Technically successful CT-guided right lung biopsy.
--- NOTE | 2016-10-27 09:43 | OPERATIVE NOTE ---
PROCEDURE DATE: 10/27/2016 PROCEDURE: Right chest tube placement. SURGEON: Skyler Lee MD PREOPERATIVE DIAGNOSIS: Post traumatic pneumothorax. POSTOPERATIVE DIAGNOSIS: Post traumatic pneumothorax. INDICATIONS: This patient has had a needle biopsy with increasing size pneumothorax post biopsy. DESCRIPTION OF PROCEDURE: After informed consent, the right anterolateral chest was prepped and draped in a sterile fashion. We anesthetized the skin with 1% lidocaine in the skin, subcutaneous tissue, and pleura. We incised the skin and dissected over a rib into the pleural space. We introduced a 24 trocar chest tube into the pleural space without difficulty. We secured this chest tube with a 0 silk at the skin at the exit level. Sterile gauze dressing was applied. It was attached to a Pleur-Evac. The bubbling was noted. The patient was then attached to suction. He tolerated it well. A chest x-ray was ordered.
[2016-10-27] MEDS: NORCO-7.5 PO PRN ×3 (14:40→22:56)
--- NOTE | 2016-10-27 17:24 | PROGRESS NOTE ---
DATE: 10/27/2016 SUBJECTIVE: The patient just had a chest tube placed this morning due to a pneumothorax that occurred yesterday during his CT-guided biopsy of the lung. He does complain of pain at the insertion site. OBJECTIVE: Vital Signs: Temperature 97.8 degrees, blood pressure 99/65, heart rate 63, respirations 16, O2 saturation is 96% on room air. General: This is a chronically ill-appearing, elderly male, lying in bed, in no acute distress. Head: Normocephalic, atraumatic. Heart: S1, S2 normal. Regular rate and rhythm. Lungs: Clear to auscultation bilaterally. No wheezing. No rales. No rhonchi. Abdomen: Positive bowel sounds. Soft, nontender, nondistended. Extremities: No edema. No cyanosis. No calf tenderness. Neurologic: The patient is awake and alert. No focal neurologic deficits noted. LABS: Sodium 137, potassium 3.7, chloride 98, CO2 25, BUN 30, creatinine 1.7, glucose 68. ASSESSMENT AND PLAN: 1. Posttraumatic pneumothorax status post CT-guided biopsy of the right lung. The patient had a chest tube placed today by the general surgeon. Will follow serial chest x-rays. 2. Right upper lobe lung mass. We are currently awaiting the pathology results from the biopsy. 3. Stage 3 chronic kidney disease. Stable. 4. Benign prostatic hypertrophy. Continue on terazosin. 5. Diabetes mellitus type 2. Continue on Amaryl. 6. History of gout. Continue on allopurinol. 7. Hypothyroidism. Continue on Synthroid. 8. Paroxysmal atrial fibrillation. Continue on Coumadin.
[2016-10-27] MEDS: COUMADIN PO SCH (21:50)
[2016-10-27] MEDS: LIPITOR PO SCH (21:50)
[2016-10-27 22:42] LABS: URINE CULTURE NEEDED? NO; URINE MICRO REVIEW NEEDED? NO; URINE SOURCE CATH
[2016-10-27 22:45] LABS: BILIRUBIN URINE NEGATIVE (NEGATIVE); BLOOD URINE NEGATIVE (NEGATIVE); COLOR YELLOW; GLUCOSE URINE NEGATIVE (NEGATIVE); LEUKOCYTES URINE TRACE (NEGATIVE); NITRITE URINE NEGATIVE (NEGATIVE); PROTEIN URINE NEGATIVE (NEGATIVE); SP GRAVITY URINE 1.008; TURBIDITY URINE CLEAR (CLEAR); UROBILINOGEN URINE NORMAL (NORMAL)
[2016-10-27 22:46] LABS: UR EPITHELIAL CELLS >10 /HPF (<10); URINE BACTERIA NEGATIVE /HPF; URINE RBC <10 /HPF (<10); URINE WBC <10 /HPF (<10)
[2016-10-28] MEDS: SYNTHROID PO SCH ×2 (05:35→06:11)
[2016-10-28 06:10] LABS: MANUAL DIFF NEEDED? NO
[2016-10-28] MEDS: HUMALOG SUBQ SCH ×2 (06:11→12:28)
[2016-10-28 06:19] LABS: BASO% 0.3 % (0.0-0.8); EOS# 0.11 X1000 (0.0-0.7); EOS% 1.4 % (0.0-10.0); HEMATOCRIT 31.3 % (42.0-52.0); IMM GRAN# 0.05 X1000 (0.0-0.04); IMM GRAN% 0.7 % (0.0-0.5); LYMPH# 1.02 X1000 (1.2-3.4); LYMPH% 13.4 % (20.5-51.1); MCH 29.8 PG (27-31); MCHC 31.9 g/dL (33-37); MCV 93.2 FL (81-99); MONO# 0.79 X1000 (0.11-0.59); MONO% 10.4 % (1.7-9.3); MPV 9.9 FL (7.4-10.4); NEUT% 73.8 % (42.2-75.2); PLT 212 X1000 (130-400); RBC 3.36 XMIL (4.7-6.1)
[2016-10-28 06:36] LABS: CALCIUM 8.7 mg/dL (8.8-10.2); POTASSIUM 4.2 mmol/L (3.5-5.1)
[2016-10-28 07:08] LABS: INR 1.24; PROTIME 12.5 Seconds (9.2-11.7)
[2016-10-28] MEDS: ALBUTEROL NEB INH SCH ×2 (07:16→23:45)
--- NOTE | 2016-10-28 07:48 | Diag Imaging Result Document ---
PROCEDURE NAME: CHEST-PORTABLE - 10/28/2016 PORTABLE CHEST X-RAY: COMPARISON: 10/27/2016. FINDINGS: Stable right mid lung chest tube. There is recurrence of the small right apical pneumothorax measuring about 1.8 cm. This is about 10%. Stable cardiomegaly. The left lung remains clear. IMPRESSION: Recurrence of the small right apical pneumothorax.
[2016-10-28] MEDS: ROCALTROL PO SCH (09:13)
[2016-10-28] MEDS: HYTRIN PO SCH (09:13)
[2016-10-28] MEDS: HYGROTON PO SCH (09:13)
[2016-10-28] MEDS: ALDACTONE PO SCH (09:14)
[2016-10-28] MEDS: LEXAPRO PO SCH (09:14)
[2016-10-28] MEDS: AMARYL PO SCH (09:14)
[2016-10-28] MEDS: ZYLOPRIM PO SCH (09:14)
[2016-10-28] MEDS ORDERED: DULCOLAX PR ONE (12:42)
[2016-10-28] MEDS: NORCO-7.5 PO PRN (15:18)
--- NOTE | 2016-10-28 15:29 | PROGRESS NOTE ---
DATE: 10/28/2016 SUBJECTIVE: The patient's chest tube was removed this morning. He complains of constipation. OBJECTIVE: Vital Signs: Temperature 97.9 degrees, blood pressure 119/71, heart rate 72, respirations 18, O2 saturations 97% on room air. General: This is a chronically ill-appearing, elderly male, lying in bed, in no acute distress. HEENT: Head normocephalic, atraumatic. Heart: S1, S2. Normal. Regular rate and rhythm. Lungs: Clear to auscultation bilaterally. No wheezing. No rales. No rhonchi. Abdomen: Positive bowel sounds. Soft, nontender, nondistended. Extremities: No edema. No cyanosis. No calf tenderness. Neurologic: The patient is alert oriented x3. LABORATORY: White blood cell count 7.5, hemoglobin 10, hematocrit 31, platelets 212,000. INR 1.2, sodium 137, potassium 4.2, chloride 98, BUN 26, creatinine 1.6, glucose 72, calcium 8.7. ASSESSMENT AND PLAN: 1. Right pneumothorax, status post chest tube placement. The patient's pneumothorax appeared to be improved on chest x-ray since chest tube was removed this morning. 2. Right upper lobe mass status post CT-guided biopsy of the lung. The pathology report is currently pending. 3. Stage 3 chronic kidney disease. Stable. 4. Constipation. We will start the patient on scheduled laxatives. 5. Protein calorie malnutrition. Will add Glucerna to the patient's meals. 6. Situational depression. Continue on Lexapro. 7. Hypothyroidism. Continue on Synthroid. 8. History of gout. Continue on allopurinol. 9. Paroxysmal atrial fibrillation. The patient is currently rate controlled. Continue on warfarin. 10. Disposition. We are currently awaiting the pathology results to determine the plan of treatment. We will consult the oncologist once the pathology report is available if this turns out to be a malignancy.
[2016-10-28] MEDS: HUMULIN R SUBQ SCH ×2 (16:40→20:08)
[2016-10-28] MEDS: LIPITOR PO SCH (20:07)
[2016-10-28] MEDS: COUMADIN PO SCH (20:07)
[2016-10-28] MEDS: MIRALAX PO SCH (20:13)
[2016-10-28] MEDS: LACTULOSE PO SCH (20:13)
[2016-10-29] MEDS: SYNTHROID PO SCH ×2 (06:02→06:19)
[2016-10-29] MEDS: HUMULIN R SUBQ SCH ×4 (06:02→20:17)
[2016-10-29 06:34] LABS: MANUAL DIFF NEEDED? NO
[2016-10-29 06:43] LABS: BASO% 0.3 % (0.0-0.8); EOS% 1.5 % (0.0-10.0); HEMATOCRIT 30.9 % (42.0-52.0); HEMOGLOBIN 10.1 g/dL (14.0-18.0); IMM GRAN# 0.04 X1000 (0.0-0.04); IMM GRAN% 0.6 % (0.0-0.5); LYMPH# 1.11 X1000 (1.2-3.4); LYMPH% 16.4 % (20.5-51.1); MCH 30.6 PG (27-31); MCHC 32.7 g/dL (33-37); MCV 93.6 FL (81-99); MONO# 0.62 X1000 (0.11-0.59); MONO% 9.2 % (1.7-9.3); MPV 9.7 FL (7.4-10.4); PLT 219 X1000 (130-400)
[2016-10-29 06:50] LABS: CALCIUM 8.3 mg/dL (8.8-10.2); POTASSIUM 4.8 mmol/L (3.5-5.1)
[2016-10-29] MEDS: ALBUTEROL NEB INH SCH ×3 (07:17→23:09)
[2016-10-29 07:23] LABS: INR 1.29; PROTIME 13.1 Seconds (9.2-11.7)
--- NOTE | 2016-10-29 07:46 | Diag Imaging Result Document ---
PROCEDURE NAME: CHEST-1 VIEW - 10/29/2016 SINGLE FRONTAL RADIOGRAPH OF THE CHEST: COMPARISON: 10/28/2016. FINDINGS: There has been interval removal of the right chest tube. No definite residual pneumothorax can be identified on this image. There is persistent atelectasis at the right lung base. There is stable mild subcutaneous emphysema overlying the right chest wall. No new consolidations are identified. There is cardiomegaly. IMPRESSION: Interval removal of the right chest tube with no definite residual pneumothorax identified on this plain radiograph.
[2016-10-29] MEDS: ALDACTONE PO SCH (08:28)
[2016-10-29] MEDS: LEXAPRO PO SCH (08:28)
[2016-10-29] MEDS: HYGROTON PO SCH (08:28)
[2016-10-29] MEDS: ZYLOPRIM PO SCH (08:28)
[2016-10-29] MEDS: HYTRIN PO SCH (08:29)
[2016-10-29] MEDS: LACTULOSE PO SCH ×2 (08:30→20:15)
[2016-10-29] MEDS: ROCALTROL PO SCH (08:30)
[2016-10-29] MEDS: MIRALAX PO SCH ×2 (08:30→20:12)
--- NOTE | 2016-10-29 15:08 | PROGRESS NOTE ---
DATE: 10/29/2016 SUBJECTIVE: The patient is resting comfortably in bed. He complains of generalized weakness. The patient's pathology on the lung biopsy came back positive for moderately differentiated adenocarcinoma. This was discussed with the patient. OBJECTIVE: Vital Signs: Temperature 98 degrees, blood pressure 123/52, heart rate 58, respirations 18, O2 saturations 96% on room air. General: This is a chronically ill-appearing, elderly male, lying in bed, in no acute distress. Head: Normocephalic, atraumatic. Heart: S1, S2. Normal. Regular rate and rhythm. Lungs: Clear to auscultation bilaterally. No wheezing. No rales. No rhonchi. Abdomen: Positive bowel sounds. Soft, nontender, nondistended. Extremities: No edema. No cyanosis. No calf tenderness. Neurologic: The patient is alert and oriented x3. LABS: White blood cell count 6.7, hemoglobin 10, hematocrit 30, platelets 219,000, INR 1.2. Sodium 136, potassium 4.8, chloride 99, CO2 30, BUN 28, creatinine 1.6, glucose 79, calcium 8.3. ASSESSMENT AND PLAN: 1. Adenocarcinoma of the lung. This diagnosis was discussed with the patient. The patient states that he would like to go to inpatient rehab before considering treatment. I also discussed the case with Dr. Perry who stated that he would make arrangements for the patient to come to the clinic to undergo a PET scan for staging. Upon completion of rehab the patient will follow with Dr. Perry for further treatment discussion. 2. Constipation. Continue with scheduled laxatives. 3. Stage 3 chronic kidney disease. Stable. 4. Benign prostatic hypertrophy. Continue on terazosin. 5. Diabetes mellitus type 2. Continue on Amaryl. 6. History of gout. Continue on allopurinol. 7. Hypothyroidism. Continue on Synthroid. 8. Paroxysmal atrial fibrillation. Will continue on Coumadin. 9. Disposition. We will place a consult for inpatient rehab placement by [facility]. The patient is medically stable for discharge to rehab.
[2016-10-29] MEDS: COUMADIN PO SCH (20:12)
[2016-10-29] MEDS: LIPITOR PO SCH (20:12)
[2016-10-30] MEDS: SYNTHROID PO SCH (06:36)
[2016-10-30 07:01] LABS: PROTIME 14.5 Seconds (9.2-11.7)
[2016-10-30 07:02] LABS: INR 1.43
[2016-10-30] MEDS: HUMULIN R SUBQ SCH ×4 (07:10→20:21)
--- NOTE | 2016-10-30 08:43 | Diag Imaging Result Document ---
PROCEDURE NAME: CHEST-PORTABLE - 10/30/2016 PORTABLE CHEST: COMPARISON: 10/29/2016. FINDINGS: Heart size appears upper normal and decreased compared to previous exam. There has been interval decrease in infiltrate, edema, or atelectasis at the right base. There is possible trace bilateral pleural effusions. There is no pneumothorax identified. IMPRESSION: Interval decrease in heart size. Interval decrease in right basilar opacity. No evidence of pneumothorax.
[2016-10-30] MEDS: HYTRIN PO SCH (08:57)
[2016-10-30] MEDS: ZYLOPRIM PO SCH (08:57)
[2016-10-30] MEDS: ALDACTONE PO SCH (08:57)
[2016-10-30] MEDS: HYGROTON PO SCH (08:58)
[2016-10-30] MEDS: ROCALTROL PO SCH (08:58)
[2016-10-30] MEDS: MIRALAX PO SCH ×2 (09:02→20:18)
[2016-10-30] MEDS: LACTULOSE PO SCH ×2 (09:02→20:17)
[2016-10-30] MEDS: LEXAPRO PO SCH (09:04)
[2016-10-30] MEDS: ALBUTEROL NEB INH SCH ×3 (09:26→23:08)
[2016-10-30] MEDS ORDERED: FLOMAX PO ONE (09:55)
--- NOTE | 2016-10-30 16:30 | PROGRESS NOTE ---
DATE: 10/30/2016 SUBJECTIVE: The patient is resting comfortably in bed. He has no complaints. OBJECTIVE: Vital Signs: Temperature 98.5 degrees, blood pressure 106/51, heart rate 74, respirations 18, O2 saturations 93% on room air. General: This is an elderly male, lying in bed, in no acute distress. Head: Normocephalic atraumatic. Heart: S1, S2. Normal. Regular rate and rhythm. Lungs: Clear to auscultation bilaterally. No wheezes, no rales. No rhonchi. Abdomen: Positive bowel sounds. Soft, nontender, nondistended. Extremities: No edema. No cyanosis. No calf tenderness. Neurologic: The patient is alert and oriented x3. LABS: INR 1.4. ASSESSMENT AND PLAN: 1. Adenocarcinoma of the lung. The patient will be following up with Dr. Perry upon discharge from rehab. He will be undergoing an outpatient PET scan for staging. 2. Stage 3 chronic kidney disease. Stable. 3. Chronic obstructive pulmonary disease. Stable. 4. Constipation. Continue on scheduled laxatives. 5. Diabetes mellitus type 2. Continue on Amaryl. 6. Hypothyroidism. Continue on Synthroid. 7. History of gout. Continue on allopurinol. 8. Paroxysmal atrial fibrillation. The patient is rate controlled. Continue on Coumadin. 9. Disposition. The patient is stable for discharge to rehab. [facility] Analyst has been consulted for rehab placement.
[2016-10-30] MEDS: LIPITOR PO SCH (20:17)
[2016-10-30] MEDS: COUMADIN PO SCH (20:17)
[2016-10-31] MEDS: ALBUTEROL NEB INH SCH ×3 (07:34→23:08)
[2016-10-31] MEDS: SYNTHROID PO SCH (07:43)
[2016-10-31] MEDS: HUMULIN R SUBQ SCH ×4 (07:44→21:23)
--- NOTE | 2016-10-31 07:52 | Diag Imaging Result Document ---
PROCEDURE NAME: CHEST-PORTABLE - 10/31/2016 PORTABLE CHEST: COMPARISON: Compared to 10/30/2016. FINDINGS: The lungs are well expanded. The heart is mildly enlarged. The vessels are not distended. I believe there is a small apical left pneumothorax. Small left effusion. No consolidation. IMPRESSION: Small left apical pneumothorax with mild cardiomegaly.
[2016-10-31] MEDS: HYTRIN PO SCH (09:22)
[2016-10-31] MEDS: LEXAPRO PO SCH (09:22)
[2016-10-31] MEDS: ALDACTONE PO SCH (09:22)
[2016-10-31] MEDS: ROCALTROL PO SCH (09:22)
[2016-10-31] MEDS: ZYLOPRIM PO SCH (09:22)
[2016-10-31] MEDS: FLOMAX PO SCH (09:22)
[2016-10-31] MEDS: MIRALAX PO SCH ×2 (09:23→21:24)
[2016-10-31] MEDS: LACTULOSE PO SCH ×2 (09:23→21:24)
[2016-10-31] MEDS: HYGROTON PO SCH (09:26)
--- NOTE | 2016-10-31 13:53 | PROGRESS NOTE ---
DATE: 10/31/2016 SUBJECTIVE: The patient has no complaints at this time. He is resting comfortably in bed. He has normal saturations on room air. OBJECTIVE: Vital signs: Temperature is 98, blood pressure 129/63, heart rate 82, respirations 12, O2 saturation is 92% on room air. General: This is a chronically ill-appearing elderly male lying in bed, in no acute distress. HEENT: Head is normocephalic and atraumatic. Heart: S1, S2, normal. Regular rate and rhythm. Lungs: Clear to auscultation bilaterally. No crackles, no rales. Abdomen: Positive bowel sounds. Soft, nontender and nondistended. Extremities: No edema, no cyanosis, no calf tenderness. Neurologic: The patient is alert and oriented x3. DIAGNOSTIC DATA: INR is 1.43. ASSESSMENT AND PLAN: 1. Adenocarcinoma of the lung. The patient will follow up with Dr. Perry for a PET CT scan as an outpatient. The plan is for the patient to go to rehab and get stronger. 2. Right pneumothorax, status post chest tube. Resolved. 3. Small left apical pneumothorax. We will monitor the patient closely. His O2 saturations are normal on room air. We will repeat the chest x-ray in the morning. 4. Stage 3 chronic kidney disease. Stable. 5. Chronic obstructive pulmonary disease. Stable. 6. Diabetes mellitus type 2. Continue on Amaryl. 7. Benign prostatic hypertrophy. Continue on Flomax. 8. Hypothyroidism. Continue on Synthroid. 9. History of gout. Continue on allopurinol. 10.Paroxysmal atrial fibrillation. Continue on Coumadin. 11.Disposition. We are currently waiting for rehab placement.
[2016-10-31] MEDS: NORCO-7.5 PO PRN ×2 (16:36→21:22)
[2016-10-31] MEDS: LIPITOR PO SCH (21:23)
[2016-10-31] MEDS: COUMADIN PO SCH (21:23)
[2016-11-01 07:20] LABS: HEMATOCRIT 31.7 % (42.0-52.0); MCH 30.3 PG (27-31); MCHC 31.5 g/dL (33-37); MCV 96.1 FL (81-99); RBC 3.3 XMIL (4.7-6.1)
[2016-11-01] MEDS: SYNTHROID PO SCH (07:39)
[2016-11-01 07:55] LABS: POTASSIUM 4.6 mmol/L (3.5-5.1); PROTIME 13.3 Seconds (9.2-11.7)
[2016-11-01 07:56] LABS: INR 1.31
[2016-11-01] MEDS: ALBUTEROL NEB INH SCH ×4 (08:01→23:11)
[2016-11-01] MEDS: HUMULIN R SUBQ SCH ×4 (09:06→23:09)
[2016-11-01] MEDS: HYTRIN PO SCH (09:33)
[2016-11-01] MEDS: MIRALAX PO SCH ×2 (09:33→23:08)
[2016-11-01] MEDS: ALDACTONE PO SCH (09:34)
[2016-11-01] MEDS: LEXAPRO PO SCH (09:34)
[2016-11-01] MEDS: HYGROTON PO SCH (09:34)
[2016-11-01] MEDS: FLOMAX PO SCH (09:34)
[2016-11-01] MEDS: ROCALTROL PO SCH (09:34)
[2016-11-01] MEDS: ZYLOPRIM PO SCH (09:34)
[2016-11-01] MEDS: LACTULOSE PO SCH ×2 (09:35→23:08)
--- NOTE | 2016-11-01 12:52 | Diag Imaging Result Document ---
PROCEDURE NAME: CHEST-2 VIEWS - 11/01/2016 CHEST, 2 VIEWS: COMPARISON: 10/31/2016. FINDINGS: There are trace pleural effusions. There is some ill-defined infiltrate in the right lung base. There are probably calcified pleural plaques. Heart size is mildly enlarged. IMPRESSION: No change from prior.
--- NOTE | 2016-11-01 13:31 | PROGRESS NOTE ---
DATE: 11/01/2016 SUBJECTIVE: Mr. Vincent is a 76-year-old male. He is in no acute distress. He does state that he has some tremors and shortness of breath with activity, but otherwise states he feels better. He does agree to go for rehab for at least 2 weeks for aggressive physical therapy secondary to his weakness and frequent falls. OBJECTIVE: Vital Signs: Temperature 98.2 degrees, heart rate 62. Respiratory rate 18, blood pressure 123/59, O2 saturation 96% on room air. General: Mr. Vincent is a 76- year-old male, he is in no acute distress and is able to answer all questions appropriately. Cardiovascular: S1, S2. Regular rate and rhythm. No rubs, gallops, murmurs. Pulmonary: Clear to auscultation. Bilateral breath sounds. No accessory muscle use or work of breathing noted. He is currently on room air. GI: Soft, nontender, nondistended. Positive bowel sounds x 4. Extremities: No edema noted. +2 dorsalis and radial pulses. LABORATORY DATA: White blood cells 3000, hemoglobin 10, hematocrit 31, platelet count 217,000. INR 1.31, sodium 136, potassium 4.6, BUN 31, creatinine is 1.7 glucose 104, calcium 9.0. IMAGING: Imaging from 10/31/2016, chest x-ray reveals that there is a small left apical pneumothorax with more mild cardiomegaly. Today on 11/01/2016, three is a pending repeat chest x- ray. ASSESSMENT AND PLAN: 1. Adenocarcinoma of the lung on the right. Dr. Perry is following. He will have the PET scan as outpatient. 2. Right pneumothorax. Has had a right chest tube pulled, waiting for repeat chest x-ray this morning. 3. Small left apical pneumothorax. He is on room air with O2 saturations normalized. No respiratory effort although he does state that he has some shortness of breath with activity. Awaiting chest x-ray results. 4. Chronic kidney disease stage 3, stable. 5. Chronic obstructive pulmonary disease is stable. 6. Diabetes mellitus type 2. Continue Amaryl. Continue with pattern blood glucoses with a sliding scale insulin. 7. Urinary retention. Continues to have Cristina catheter has been started on Flomax 0.4 mg p.o. daily. 8. Thiamine with Benign prostatic hypertrophy also. 9. Hypothyroidism, continue Synthroid. 10. Gout. Continue allopurinol and monitor kidney function. 11. Hypertension. Continue home medications. 12. Paroxysmal atrial fibrillation. Continue with the Coumadin he has normal heart rhythm. Normal S1, S2 with auscultation. 13. He takes Coumadin 5 mg nightly, and looking at his INR he does not seem to be therapeutic. He actually seems to be subtherapeutic with an INR 1.31. Coumadin likely should be increased but he does have a history of falls and this should be considered also. 14. 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 15. Disposition waiting for rehab placement secondary to the need for aggressive physical therapy for 2 weeks. 16. Hyperlipidemia. Continue statin. 17. Depression. Continue Lexapro. 18. Constipation. Continue lactulose, MiraLAX. 19. Gastrointestinal prophylaxis. Will start on proton pump inhibitor. 20. Deep vein thrombosis prophylaxis currently on Coumadin therapy. Dictated by LUPE Linton for Nicolas Parker MD pt examined, large hematoma, on back, complaining that is more symptomatic, will go ahead and scan it, likley a hematoma from previous biopsy, chest tube APENOT MTDD
--- NOTE | 2016-11-01 14:47 | Diag Imaging Result Document ---
PROCEDURE NAME: CT THORAX W/O CONTRAST - 11/01/2016 CT CHEST: A CT dose reduction protocol was used. COMPARISON: 10/23/2016. FINDINGS: There is a right flank hematoma in the soft tissue. This measures about 13.4 x 4.2 cm and is grossly stable from the prior CT of 10/23/2016. There is some soft tissue gas at the right chest wall extending up to the right shoulder joint. The source is unclear. No pneumothorax. No acute fractures visible. There is a small right and trace left pleural effusion. There are calcified pleural plaques. There is a stable right upper lobe pulmonary nodule. Heart size is borderline with a very small pericardial effusion. Upper abdominal images demonstrate a small gallstone, but are otherwise normal. No significant infiltrates in the lungs. There are COPD changes. IMPRESSION: 1. Stable right flank soft tissue hematoma. 2. New soft tissue gas at the anterior right chest wall and right shoulder, indeterminate. 3. Trace pleural effusions. 4. Other findings are stable. [facility]
[2016-11-01] MEDS: NORCO-7.5 PO PRN (23:07)
[2016-11-01] MEDS: LIPITOR PO SCH (23:07)
[2016-11-02 06:35] LABS: MANUAL DIFF NEEDED? NO
[2016-11-02 06:43] LABS: BASO% 0.7 % (0.0-0.8); EOS# 0.14 X1000 (0.0-0.7); EOS% 3.3 % (0.0-10.0); HEMATOCRIT 32.4 % (42.0-52.0); HEMOGLOBIN 10.2 g/dL (14.0-18.0); LYMPH# 1.03 X1000 (1.2-3.4); LYMPH% 24.2 % (20.5-51.1); MCH 29.9 PG (27-31); MCHC 31.5 g/dL (33-37); MONO# 0.55 X1000 (0.11-0.59); MONO% 12.9 % (1.7-9.3); MPV 9.8 FL (7.4-10.4); NEUT% 58.9 % (42.2-75.2); PLT 222 X1000 (130-400); RBC 3.41 XMIL (4.7-6.1)
[2016-11-02] MEDS: PRILOSEC PO SCH (06:52)
[2016-11-02] MEDS: SYNTHROID PO SCH (06:55)
[2016-11-02 07:10] LABS: INR 1.39
[2016-11-02] MEDS: ALBUTEROL NEB INH SCH ×3 (07:29→23:01)
[2016-11-02 07:45] LABS: CALCIUM 9.2 mg/dL (8.8-10.2); TOTAL BILIRUBIN 0.81 mg/dL (0.20-1.00); TOTAL PROTEIN 5.3 g/dL (6.3-8.3)
[2016-11-02] MEDS: HUMULIN R SUBQ SCH ×4 (07:47→22:31)
[2016-11-02 07:59] LABS: POTASSIUM 5.3 mmol/L (3.5-5.1)
[2016-11-02] MEDS: MIRALAX PO SCH ×2 (09:25→22:31)
[2016-11-02] MEDS: ALDACTONE PO SCH (09:26)
[2016-11-02] MEDS: LACTULOSE PO SCH ×2 (09:26→22:31)
[2016-11-02] MEDS: FLOMAX PO SCH (09:26)
[2016-11-02] MEDS: ROCALTROL PO SCH (09:26)
[2016-11-02] MEDS: HYTRIN PO SCH (09:26)
[2016-11-02] MEDS: ZYLOPRIM PO SCH (09:26)
[2016-11-02] MEDS: LEXAPRO PO SCH (09:27)
[2016-11-02] MEDS: HYGROTON PO SCH (09:27)
--- NOTE | 2016-11-02 10:55 | PROGRESS NOTE ---
DATE: 11/02/2016 SUBJECTIVE: Mr. Vincent is a 76-year-old male in no acute distress. He has no complaints today. He has been moved to a different room and is and is enjoying having a roommate that he chat with. He has no complaints. He is awaiting rehabilitation for physical therapy. OBJECTIVE: Vital Signs: Temperature 97.9 degrees, heart rate 78, respiratory rate 16, blood pressure 126/55, O2 saturation 97% on room air. General: Mr. Vincent is a 76-year-old male in no acute distress. Is able to answer all questions appropriately. Cardiovascular: S1, S2. Regular rate and rhythm. No rubs, gallops, murmurs. Pulmonary: Clear to auscultation. Bilateral breath sounds. No accessory muscle use or work of breathing noted. Gastrointestinal: Soft, nontender, nondistended. Positive bowel sounds x4. Neurologic: A and O x4. Moves all extremities equally with generalized weakness. LABORATORY DATA: White blood cells 4000, hemoglobin 10, hematocrit 32, platelet count 220,000. INR 1.39. Sodium 138, potassium 5.3, BUN 34, creatinine 1.6, glucose 112, calcium 9.2, albumin 3.0. IMAGING: Chest CT for 11/01/2016: Stable right flank soft tissue hematoma. New soft tissue gas at the anterior right chest wall and right shoulder, which is indeterminate. Trace pleural effusions. No pneumothoraces. ASSESSMENT AND PLAN: 1. Adenocarcinoma. Dr. Perry is following. PET scan planned as outpatient. 2. Right and left pneumothoraces have resolved. Did have a right pleural chest tube. This is gone. The CT is showing some new soft tissue gas at the anterior chest wall and right shoulder. 3. Chronic kidney disease, stage 3 which is stable. 4. Hyperkalemia. He is on spironolactone. If potassium continues to increase, may consider discontinuing this medication. 5. Chronic obstructive pulmonary disease, stable. 6. Diabetes mellitus, type 2. Continue Amaryl, pattern blood glucoses, and sliding scale insulin. 7. Urinary retention. Continue Flomax 0.4 and Cristina for now. 8. Benign prostatic hypertrophy. See above. 9. Hypothyroidism. Continue Synthroid. 10. Gout. Continue allopurinol and monitor kidney function. 11. Hypertension. Continue home medications. 12. Paroxysmal atrial fibrillation. He was on Coumadin 5 mg nightly. It looks like it was discontinued yesterday. The INR is subtherapeutic. Consider resuming. 13. Right flank hematoma, stable. Could be why we stopped the Coumadin. 14. Disuse myopathy, generalized weakness and imbalance. Needs 5-7 days of PT for 2 weeks. 15. Hyperlipidemia. Continue statin. 16. Depression. Continue Lexapro. 17. Constipation. Continue lactulose and MiraLAX. 18. Disposition: To rehabilitation for at least 2 weeks aggressive physical therapy. 19. Gastrointestinal prophylaxis. Proton pump inhibitor. 20. Deep venous thrombosis prophylaxis. Was on Coumadin therapy. Will do at least SCDs. He is on TEDs. Dictated by LUPE Linton for Wei Yates MD
[2016-11-02] MEDS ORDERED: COUMADIN PO ONE (21:34)
[2016-11-02] MEDS: LIPITOR PO SCH (22:29)
[2016-11-02] MEDS: NORCO-7.5 PO PRN (22:30)
[2016-11-03] MEDS: NORCO-7.5 PO PRN ×2 (02:28→22:57)
[2016-11-03 06:06] LABS: MANUAL DIFF NEEDED? NO
[2016-11-03 06:18] LABS: INR 1.27; PROTIME 12.9 Seconds (9.2-11.7)
[2016-11-03 06:23] LABS: BASO% 0.4 % (0.0-0.8); EOS# 0.15 X1000 (0.0-0.7); HEMATOCRIT 33.1 % (42.0-52.0); HEMOGLOBIN 10.5 g/dL (14.0-18.0); IMM GRAN# 0.02 X1000 (0.0-0.04); IMM GRAN% 0.4 % (0.0-0.5); LYMPH# 0.92 X1000 (1.2-3.4); LYMPH% 18.2 % (20.5-51.1); MCH 29.9 PG (27-31); MCHC 31.7 g/dL (33-37); MCV 94.3 FL (81-99); MONO# 0.56 X1000 (0.11-0.59); MONO% 11.1 % (1.7-9.3); MPV 9.8 FL (7.4-10.4); NEUT% 66.9 % (42.2-75.2); PLT 231 X1000 (130-400); RBC 3.51 XMIL (4.7-6.1)
[2016-11-03 06:34] LABS: ALBUMIN 2.8 g/dL (3.5-5.0); CALCIUM 8.8 mg/dL (8.8-10.2); POTASSIUM 5.3 mmol/L (3.5-5.1); TOTAL BILIRUBIN 0.8 mg/dL (0.20-1.00); TOTAL PROTEIN 5.2 g/dL (6.3-8.3)
[2016-11-03] MEDS: HUMULIN R SUBQ SCH ×4 (06:35→22:40)
[2016-11-03] MEDS: PRILOSEC PO SCH (06:36)
[2016-11-03] MEDS: SYNTHROID PO SCH (06:36)
[2016-11-03] MEDS: ALBUTEROL NEB INH SCH ×3 (07:14→20:31)
[2016-11-03] MEDS: MIRALAX PO SCH ×2 (08:40→22:47)
[2016-11-03] MEDS: ROCALTROL PO SCH (08:41)
[2016-11-03] MEDS: FLOMAX PO SCH (08:41)
[2016-11-03] MEDS: HYTRIN PO SCH (08:41)
[2016-11-03] MEDS: LEXAPRO PO SCH (08:41)
[2016-11-03] MEDS: HYGROTON PO SCH (08:41)
[2016-11-03] MEDS: ZYLOPRIM PO SCH (08:41)
[2016-11-03] MEDS: LACTULOSE PO SCH ×2 (08:42→22:47)
--- NOTE | 2016-11-03 11:58 | EKG Report ---
Test Performed on : 11/03/2016 10:12:38 AM Test Reason : evaluate rythm Blood Pressure : / mmHG Vent. Rate : 069 BPM Atrial Rate : 068 BPM P-R Int : 000 ms QRS Dur : 092 ms QT Int : 410 ms P-R-T Axes : 000 079 053 degrees QTc Int : 439 ms Atrial fibrillation. Cannot rule out Anterior infarct , age undetermined Abnormal ECG When compared with ECG of 23-OCT-2016 16:42, Previous ECG has undetermined rhythm, needs review Minimal criteria for Anterior infarct are now present ST no longer depressed in Lateral leads T wave inversion no longer evident in Lateral leads QT has shortened Confirmed by Selina PORTILLO, Bear Saha ([id number]) on 11/03/2016 3:24:57 PM
--- NOTE | 2016-11-03 16:52 | PROGRESS NOTE ---
DATE: 11/03/2016 SUBJECTIVE: This patient is doing better. He is not in acute distress. He has no complaints at this moment. When I evaluated this patient he was with physical therapy walking. No complaints. He is awaiting for a rehab center. OBJECTIVE: Vital Signs: Temperature 97.6 degrees, pulse 70, respiratory rate 16, blood pressure 132/78, O2 saturation 98 on room air. HEENT: Head normocephalic. No trauma. PERRLA. Neck: Supple. No JVD. No masses. Central trachea. Chest: Clear to auscultation. Bilateral breath sounds. No accessory muscle use or work of breathing noted. Gastrointestinal: Soft, nontender, nondistended. Positive bowel sounds. Neurological: The patient is alert and oriented x4. Moves all 4 extremities. LABORATORY: WBC 5, hemoglobin 10.5, hematocrit 33.1, platelets 231,000. Sodium 138, potassium 5.3, chloride 103, bicarbonate 28, BUN 31, creatinine 1.5, glucose 113. Calcium 8.8. Albumin 2.8. ASSESSMENT AND PLAN: 1. Adenocarcinoma. Dr. Perry is following. PET scan planned as an outpatient. 2. Right and left pneumothorax has been resolved. CT of the chest showed some new soft tissue gas in anterior chest wall and right shoulder but he is stable. 3. CKD stage 3 stable. 4. Hyperkalemia. I stopped the spironolactone. He has been having hyperkalemia for 2 days in a row. We will continue to monitor. 5. COPD not in exacerbation. Continue to monitor. 6. Type 2 diabetes. Continue with the same management. 7. Urinary retention. Continue with Flomax and Cristina for now. 8. BPH as above. 9. Hypothyroidism. Continue with Synthroid. 10. Gout. Continue with allopurinol and monitor kidney function. 11. Hypertension. Continue with home medications. 12. Paroxysmal atrial fibrillation. We will continue with Coumadin 5 mg at night and monitoring the INR. 13. Right flank hematoma stable. 14. Diffuse myopathy, generalized weakness and imbalance. We are working right now with physical therapy. On discharge he will go to a rehab center. 15. Hyperlipidemia. Continue with statins. 16. Depression. Continue with Lexapro. 17. Constipation. Continue with lactulose and MiraLAX. 18. DVT prophylaxis. This patient is on Coumadin. 19. GI prophylaxis. Continue with PPIs. 20. Disposition. To rehabilitation for at least 2 weeks of aggressive physical therapy.
[2016-11-03] MEDS: LIPITOR PO SCH (22:57)
[2016-11-03] MEDS: COUMADIN PO SCH (22:57)
[2016-11-04] MEDS: HUMULIN R SUBQ SCH ×4 (06:24→21:28)
[2016-11-04] MEDS: PRILOSEC PO SCH (06:25)
[2016-11-04] MEDS: SYNTHROID PO SCH (06:25)
[2016-11-04 06:26] LABS: MANUAL DIFF NEEDED? NO
[2016-11-04 06:27] LABS: BASO% 0.7 % (0.0-0.8); EOS# 0.15 X1000 (0.0-0.7); EOS% 3.6 % (0.0-10.0); HEMATOCRIT 31.1 % (42.0-52.0); HEMOGLOBIN 9.8 g/dL (14.0-18.0); IMM GRAN# 0.02 X1000 (0.0-0.04); IMM GRAN% 0.5 % (0.0-0.5); LYMPH# 1.08 X1000 (1.2-3.4); LYMPH% 25.8 % (20.5-51.1); MCH 29.6 PG (27-31); MCHC 31.5 g/dL (33-37); MONO# 0.38 X1000 (0.11-0.59); MONO% 9.1 % (1.7-9.3); MPV 9.6 FL (7.4-10.4); NEUT% 60.3 % (42.2-75.2); PLT 228 X1000 (130-400); RBC 3.31 XMIL (4.7-6.1)
[2016-11-04 06:40] LABS: INR 1.17; PROTIME 11.9 Seconds (9.2-11.7)
[2016-11-04 06:59] LABS: ALBUMIN 2.8 g/dL (3.5-5.0); CALCIUM 8.4 mg/dL (8.8-10.2); POTASSIUM 4.4 mmol/L (3.5-5.1); TOTAL BILIRUBIN 0.74 mg/dL (0.20-1.00); TOTAL PROTEIN 5.2 g/dL (6.3-8.3)
[2016-11-04] MEDS: ALBUTEROL NEB INH SCH ×3 (07:58→23:23)
[2016-11-04] MEDS: MIRALAX PO SCH ×2 (08:17→21:29)
[2016-11-04] MEDS: HYGROTON PO SCH (08:18)
[2016-11-04] MEDS: ZYLOPRIM PO SCH (08:18)
[2016-11-04] MEDS: LEXAPRO PO SCH (08:18)
[2016-11-04] MEDS: ROCALTROL PO SCH (08:18)
[2016-11-04] MEDS: HYTRIN PO SCH (08:18)
[2016-11-04] MEDS: LACTULOSE PO SCH ×2 (08:19→21:28)
[2016-11-04] MEDS: FLOMAX PO SCH (08:19)
--- NOTE | 2016-11-04 12:00 | PROGRESS NOTE ---
DATE: 11/04/2016 SUBJECTIVE: The patient reports feeling fine, mild back pain because, according to the patient, he is lying down most of the time on the bed. OBJECTIVE: Vital signs: Temperature 98.5, heart rate 67, respiratory rate 16, blood pressure 122/59, O2 sat 98% on room air. General: This is a 76-year-old chronically ill-looking male lying in bed in no acute distress. HEENT: Head is normocephalic and atraumatic, anicteric sclerae, pink conjunctivae. Mucous membranes moist. Neck: Supple, no JVD noted, no carotid bruits, no lymphadenopathy, no thyromegaly. Cardiovascular: S1, S2 heard, no murmurs, gallops, or rubs, regular rate and rhythm. Respiratory: Clear bilaterally to auscultation. No work of breathing or using accessory muscles. Abdomen: Soft, nontender to palpation. Bowel sounds present. No organomegaly. Extremities: No clubbing, cyanosis, or edema. Peripheral pulses present in both legs. Neurological: Patient is alert and oriented x3, moves 4 extremities. LABORATORY DATA: Reviewed. ASSESSMENT AND PLAN: 1. Lung adenocarcinoma. Dr. Perry from Hematology/Oncology is following this patient. Path is going to be done as an outpatient. 2. Right and left pneumothorax. That condition has resolved. 3. Chronic kidney disease stage 3, stable. 4. Hyperkalemia. That condition is completely resolved. 5. Chronic obstructive pulmonary disease. The patient is not having an exacerbation. Will continue to monitor. 6. Diabetes type 2. Will continue with same management. 7. Urinary retention. Will continue with Flomax. 8. Hypothyroidism. Will continue with Synthroid, home doses. 9. Gout. Will continue with allopurinol and monitoring kidney function. 10.Hypertension. Will continue with home medications. 11.Paroxysmal atrial fibrillation. The patient is on Coumadin. Will continue checking INR while this patient is in the hospital. 12.Right flank hematoma, stable. 13.Hyperlipidemia. Will continue with statins. 14.Depression. Will continue with Lexapro. DISPOSITION: The patient is going to a rehab facility when we get a bed for him.
[2016-11-04] MEDS: COUMADIN PO SCH (21:28)
[2016-11-04] MEDS: LIPITOR PO SCH (21:28)
[2016-11-04] MEDS: NORCO-7.5 PO PRN (21:38)
[2016-11-05 06:02] LABS: MANUAL DIFF NEEDED? NO
[2016-11-05 06:17] LABS: BASO% 0.8 % (0.0-0.8); EOS# 0.14 X1000 (0.0-0.7); EOS% 2.9 % (0.0-10.0); IMM GRAN# 0.02 X1000 (0.0-0.04); IMM GRAN% 0.4 % (0.0-0.5); LYMPH# 1.25 X1000 (1.2-3.4); MCH 29.3 PG (27-31); MCHC 31.3 g/dL (33-37); MCV 93.8 FL (81-99); MONO% 8.3 % (1.7-9.3); MPV 9.8 FL (7.4-10.4); NEUT% 61.6 % (42.2-75.2); PLT 245 X1000 (130-400); RBC 3.41 XMIL (4.7-6.1)
[2016-11-05 06:18] LABS: INR 1.2; PROTIME 12.7 Seconds (9.2-11.7)
[2016-11-05 06:23] LABS: ALBUMIN 2.9 g/dL (3.5-5.0); CALCIUM 8.5 mg/dL (8.8-10.2); POTASSIUM 4.4 mmol/L (3.5-5.1); TOTAL BILIRUBIN 0.56 mg/dL (0.20-1.00); TOTAL PROTEIN 5.1 g/dL (6.3-8.3)
[2016-11-05] MEDS: HUMULIN R SUBQ SCH ×3 (06:28→16:36)
[2016-11-05] MEDS: PRILOSEC PO SCH (06:32)
[2016-11-05] MEDS: SYNTHROID PO SCH (06:32)
[2016-11-05] MEDS: ALBUTEROL NEB INH SCH ×2 (08:03→16:12)
[2016-11-05] MEDS: LACTULOSE PO SCH (09:36)
[2016-11-05] MEDS: LEXAPRO PO SCH (09:37)
[2016-11-05] MEDS: ROCALTROL PO SCH (09:37)
[2016-11-05] MEDS: FLOMAX PO SCH (09:37)
[2016-11-05] MEDS: HYTRIN PO SCH (09:37)
[2016-11-05] MEDS: HYGROTON PO SCH (09:37)
[2016-11-05] MEDS: MIRALAX PO SCH (09:38)
[2016-11-05] MEDS: ZYLOPRIM PO SCH (09:39)
[2016-11-05] MEDS: NORCO-7.5 PO PRN ×2 (10:00→15:51)
--- NOTE | 2016-11-05 14:06 | DISCHARGE SUMMARY ---
ADMISSION DATE: 10/23/2016 DISCHARGE DATE: 11/05/2016 CONSULTATIONS: 1. Dr. Shaheen Lopez with pulmonology. 2. Dr. Skyler Quinones with general surgery. 3. Dr. Perry with oncology. PERTINENT PROCEDURES: 1. Chest, abdomen, and pelvis CT showed 17 mm spiculated mass in the right upper lobe. Mild emphysema. Question of subacute right rib fracture. 2. Cervical spine showed no hemorrhage, no injury. Mild atrophy with mild microvascular ischemic changes. Left maxillary sinusitis. No acute bony injury. Prominent degenerative changes. 3. Renal ultrasound shows small hypoechoic, small-appearing nodule in the lower pole of left kidney. It appeared to be stable in size compared to previous study. Bilateral suprapubic renal cyst. Somewhat increased renal cortical echotexture and nonspecific indicator of medical renal disease. 4. Lung biopsy CT that was successful of the right lung that resulted as adenocarcinoma, moderately differentiated with tumor necrosis. 5. Status post right chest tube placement for posttraumatic pneumothorax on the right performed by Dr. Skyler quinones. 6. Chest CT that showed stable right flank soft tissue hematoma. New soft tissue gas at the anterior right chest wall and right shoulder, intermediate. Trace pleural effusion. Stable right upper lobe pulmonary nodule. There was no pneumothorax, no acute visible fractures. DISCHARGE DIAGNOSES: 1. Right lung adenocarcinoma. Patient being followed by Dr. Perry with hematology/oncology. The patient will be discharged to rehabilitation for 2 weeks to regain strength so he can start treatment, and he will pick back up with home health and physical therapy. 2. Right and left pneumothorax. The patient is status post right chest CT, as well as right lung biopsy. 3. Chronic kidney disease stage III, stable. 4. Hyperkalemia, resolved. Patient was taken off his spironolactone. 5. Chronic obstructive pulmonary disease without exacerbation. 6. Diabetes mellitus type 2. The patient's Amaryl was taken down to 1 mg from 2 secondary to his chronic kidney disease. 7. Urinary retention. Continue Flomax. 8. Hypothyroidism. Continue with Synthroid. 9. Gout. Continue with allopurinol. Continue to monitor kidney function. 10. Hypertension. Continue with home medications. 11. Paroxysmal atrial fibrillation. The patient will continue on Coumadin. Patient is still subtherapeutic, however he does have a right flank hematoma. Will continue this daily with checking his INR in 3 days. The PT and INR to be reordered per the medical education specialist at rehabilitation. The patient started back on his digoxin, as well as Cardizem. 12. Right flank hematomas, stable. 13. Hyperlipidemia, continue statin. 14. Depression, continue with Lexapro. HOSPITAL COURSE: Briefly, Mr. Vincent is a 76-year-old male with a history of chronic kidney disease stage III, hypertension, diabetes mellitus type 2, coronary artery disease, paroxysmal atrial fibrillation, CVA. Prior to coming to the ED, the patient several days ago had a hematoma on his back and his right flank. Imaging done in the ED showed that he had a right upper lung mass. The patient had fallen and gotten right flank hematoma. The lung mass was incidental finding. The patient was admitted to the hospital for further evaluation. Dr. Lopez with pulmonology assessed the patient. He consulted interventional radiology for a CT fine needle aspiration of the mass that was obtained. It did show adenocarcinoma. Subsequently, the patient developed left and right pneumothoraces. He did have a chest tube placed by Dr. Skyler quinones on 10/27/2016. His pneumothoraces did resolve. The patient was able to get his chest tube out. He worked with physical therapy while here. On 11/01, we were looking at rehab versus home health with physical therapy. We got manager social involved. Patient did have home health. However, we thought rehab would be better and more aggressive for him to get stronger to undergo treatments with Dr. Perry. Subsequently he did complain of a mass on his right shoulder. It showed soft tissue gas in the anterior chest wall on the right shoulder that was intermediate. Patient has remained stable. He remains on room air. Hemodynamically, patient has been stable. VITAL SIGNS AT TIME OF DISCHARGE: Temperature is 98.6 degrees, heart rate 74, respirations 20, blood pressure 126/60, O2 is 98% on room air. PT at the time of discharge was 12.7, INR is 1.20. BUN is 31 and creatinine is 1.3. DISCHARGE DIET: Diabetic with Glucerna with each meal. DISCHARGE MEDICATIONS: 1. Allopurinol 300 mg p.o. daily. 2. Digoxin 125 mcg p.o. daily. 3. Lipitor 40 mg p.o. at bedtime. 4. Synthroid 50 mcg p.o. daily. 5. Warfarin 5 mg p.o. at bedtime. 6. Calcitriol 0.25 mg p.o. daily. 7. Chlorthalidone 12.5 mg p.o. daily. 8. Lexapro 10 mg p.o. daily. 9. Cardizem CD 180 mg p.o. daily. 10. [place] 7.5/325 1 each p.o. q. 4 hours p.r.n. pain. 11. Amaryl 1 mg p.o. b.i.d. 12. Flomax 0.4 mg p.o. daily. 13. MiraLAX 17 g p.o. b.i.d. 14. Prilosec 40 mg p.o. daily. FOLLOWUP: Patient is being discharged to rehab for 2 weeks, and he will follow up with Dr. Perry outpatient for PET scan. He will need to continue to follow up with Dr. Carty in 2 weeks, as well as his primary care physician in 1 week. The patient can return to the ED for new or worsening of symptoms. DISCHARGE TIME: Discharge time was greater than 30 minutes. Dictated by LUPE Noriega for Abelardo Allen MD
[2016-11-05 15:31] VITALS: BP 122/70
== END 2016-11-05 17:09 | DRG 181 ==
LOC: ED 16:24 → 4N 23:07
PROVIDERS: ATTEND Internal Medicine
PROC: 0BBC3ZX Excision of Right Upper Lung Lobe, Percutaneous Approach, Diagnostic (ICD-10-PCS; principal; 2016-10-26)
PROC: 0W9900Z Drainage of Right Pleural Cavity with Drainage Device, Open Approach (ICD-10-PCS; 2016-10-27)
DX: C34.11 Malignant neoplasm of upper lobe, right bronchus or lung (principal); E87.1 Hypo-osmolality and hyponatremia; N17.9 Acute kidney failure, unspecified; E46 Unspecified protein-calorie malnutrition; I48.0 Paroxysmal atrial fibrillation; E11.22 Type 2 diabetes mellitus with diabetic chronic kidney disease; R00.1 Bradycardia, unspecified; I13.0 Hypertensive heart and chronic kidney disease with heart failure and stage 1 through stage 4 chronic kidney disease, or unspecified chronic kidney disease; I50.9 Heart failure, unspecified; Z99.81 Dependence on supplemental oxygen; S22.31XA Fracture of one rib, right side, initial encounter for closed fracture; S20.219A Contusion of unspecified front wall of thorax, initial encounter; J95.811 Postprocedural pneumothorax; N18.3 Chronic kidney disease, stage 3 (moderate); I25.10 Atherosclerotic heart disease of native coronary artery without angina pectoris; W19.XXXA Unspecified fall, initial encounter; S30.1XXA Contusion of abdominal wall, initial encounter; J44.9 Chronic obstructive pulmonary disease, unspecified; M10.9 Gout, unspecified; E03.9 Hypothyroidism, unspecified; K59.00 Constipation, unspecified; F32.89 Other specified depressive episodes; R33.9 Retention of urine, unspecified; E78.5 Hyperlipidemia, unspecified; E87.5 Hyperkalemia; N40.1 Benign prostatic hyperplasia with lower urinary tract symptoms; G72.9 Myopathy, unspecified; J32.0 Chronic maxillary sinusitis; Z23 Encounter for immunization; Z86.73 Personal history of transient ischemic attack (TIA), and cerebral infarction without residual deficits; Z95.5 Presence of coronary angioplasty implant and graft; Z87.891 Personal history of nicotine dependence; Z82.49 Family history of ischemic heart disease and other diseases of the circulatory system; Z91.81 History of falling; Z79.899 Other long term (current) drug therapy; Z79.01 Long term (current) use of anticoagulants
CPT/HCPCS: 32405; 70450; 71010; 71020; 71250; 72125; 74176; 76770; 77012; 80048; 80053; 80069; 80162; 81001; 82550; 82570; 82948; 83735; 83880; 83935; 84100; 84156; 84300; 84439; 84443; 84484; 84540; 85025; 85027; 85379; 85610; 85730; 86850; 86900; 86901; 88305; 93005; 93010; 94640; 94760; 94761; 94762; J1815; J7030; Q2038; Q9967; 97116-GP; 97530-GP

== ENCOUNTER 2018-09-23 03:52 | Inpatient (IN) ==
[2018-09-23] MEDS ORDERED: NS 1,000 ML IV ONE (04:02)
[2018-09-23] MEDS ORDERED: NS 1,000 ML ONE (04:04)
[2018-09-23 04:13] LABS: BASO# 0.05 X1000 (0.0-0.2); BASO% 0.5 % (0.0-0.8); EOS# 0.23 X1000 (0.0-0.7); EOS% 2.2 % (0.0-10.0); HEMATOCRIT 36.4 % (42.0-52.0); HEMOGLOBIN 11.6 g/dL (14.0-18.0); IMM GRAN# 0.07 X1000 (0.0-0.04); IMM GRAN% 0.7 % (0.0-0.5); LYMPH# 2.27 X1000 (1.2-3.4); LYMPH% 21.4 % (20.5-51.1); MCH 27.8 PG (27-31); MCHC 31.9 g/dL (33-37); MCV 87.1 FL (81-99); MONO# 1.02 X1000 (0.11-0.59); MONO% 9.6 % (1.7-9.3); MPV 9.8 FL (7.4-10.4); NEUT# 6.96 X1000 (1.4-6.5); NEUT% 65.6 % (42.2-75.2); PLT 260 X1000 (130-400); RBC 4.18 XMIL (4.7-6.1); RDW 15.9 % (11.5-14.5)
--- NOTE | 2018-09-23 04:15 | PROVIDER DOCUMENTATION ---
HPI-Abdominal Pain/GI Problem - General Chief Complaint: GI Bleed Stated Complaint: gi bleed Time Seen by Provider: 09/23/18 04:05 Allergies/Adverse Reactions: Patient Allergies Allergy/AdvReac Type Severity Reaction Status Date / Time amoxicillin trihydrate * Allergy NAUSEA/VOMI Verified 09/23/18 05:15 [From Augmentin] TING potassium clavulanate * Allergy NAUSEA/VOMI Verified 09/23/18 05:15 [From Augmentin] TING Home Medications: Home Medication List Medication Instructions Recorded Confirmed Last Taken Type ATORVAstatin [Lipitor] 40 mg PO QHS 06/20/15 09/23/18 08/17/17 History Allopurinol 300 mg PO DAILY 06/20/15 09/23/18 09/11/17 08:00 History Digoxin [Digox] 125 mcg PO DAILY 06/20/15 09/23/18 08/17/17 History Levothyroxine [Synthroid] 50 microgm PO DAILY 06/20/15 09/23/18 09/11/17 08:00 History Calcitriol 0.25 mcg PO DAILY 10/20/15 09/23/18 08/17/17 History Chlorthalidone 12.5 mg PO DAILY 10/23/16 09/23/18 09/11/17 08:00 History Escitalopram Oxalate [Lexapro] 10 mg PO DAILY 10/23/16 09/23/18 09/11/17 08:00 History Glimepiride [Amaryl] 1 mg PO BID #30 tablet 11/05/16 08/18/17 08/17/17 Rx Omeprazole [Prilosec] 40 mg PO DAILY@0700 #0 capsule 11/05/16 09/23/18 08/17/17 Rx Tamsulosin [Flomax] 0.4 mg PO DAILY #0 capsule 11/05/16 09/23/18 09/11/17 08:00 Rx Glimepiride 2 mg PO BID #60 tab 10/31/17 09/23/18 Unknown Rx Alprazolam 0.25 mg PO BID 11/03/17 09/23/18 Unknown History Diltiazem C.d. [Cardizem Cd] 180 mg PO DAILY 11/03/17 09/23/18 Unknown History Furosemide [Lasix] 20 mg PO DAILY 11/03/17 09/23/18 Unknown History Ammonium Lactate [Lac-Hydrin Five] 226 gm TP TID #1 lotion 05/01/18 09/23/18 Unknown Rx Lanolin/Mineral Oil [Thera Bath 473 ml TOP PRN PRN #1 oil 05/01/18 09/23/18 Unknown Rx Oil] Triamcinolone 0.1% Oint [Kenalog 60 gm .SEE ORDER BID #2 tube 05/01/18 09/23/18 Unknown Rx 0.1% Ointment] Rivaroxaban [Xarelto] 15 mg PO QHS 09/23/18 09/23/18 Unknown History - History of Present Illness-ABD Nature of Presenting Problems: Pt was sent to ER because staff at [facility] noted that he had large bloody BM tonight when going to restroom. Pt does take xarelto for A Fib. Abdominal Pain Onset Location: reports: RLQ, LLQ, suprapubic Pain Radiation: reports: no radiation Quality of Pain: reports: cramping Onset/Duration: reports: 1 hour ago Timing: reports: improving Activities at Onset: reports: light activity Exposure to sick contacts?: No Modifying Factors: improves with: nothing Associated Symptoms: reports: denies symptoms Last BM: last night Dark Stools Present?: reports: bright red blood Rectal Bleeding: reports: bleeding without stool Rectal Pain: reports: none Emesis Description: reports: none Bruising or Bleeding Gums?: No Similar Symptoms Previously?: No Recently seen or treated by another doctor?: No Review of Systems - Adult - REVIEW OF SYSTEMS - ADULT Constitutional: reports: no symptoms reported, see HPI Eyes: reports: no symptoms reported, see HPI Ears, Nose, Mouth & Throat: reports: no symptoms reported, see HPI Cardiovascular: reports: no symptoms reported, see HPI Respiratory: reports: no symptoms reported, see HPI Gastrointestinal: reports: see HPI, rectal bleeding Genitourinary: reports: no symptoms reported, see HPI Musculoskeletal: reports: no symptoms reported, see HPI Integumentary: reports: no symptoms reported, see HPI Neurological: reports: no symptoms reported, see HPI Psychiatric: reports: no symptoms reported, see HPI Endocrine: reports: no symptoms reported, see HPI Hematologic/Lymphatic: reports: no symptoms reported, see HPI Allergic/Immunologic: reports: no symptoms reported, see HPI All Other Systems: Reviewed and Negative Past History - Adult - PAST MEDICAL HISTORY-ADULT Review of Records: reports: Nursing Assessment Review, Medications Reviewed, Social history reviewed & non-contributory. Major Childhood Illnesses: reports: denies history Cardiovascular: reports: A-Fib, CAD, CHF, HTN, hyperlipidemia, TN, other (Stents ) Respiratory: reports: COPD (home 02 prn) Gastrointestinal: reports: GERD Obstetrical/Gynecological: reports: denies history Genitourinary: reports: kidney disease Musculoskeletal: reports: denies history Neurological: reports: CVA Psychiatric: reports: denies history Endocrine/Immune: reports: Diabetes Other Conditions: reports: denies history - PRIOR SURGERIES/PROCEDURES Surgical/Procedure History: reports: cardiac stent, hernia repair, other (TURP) - PRIOR HOSPITALIZATIONS Prior Hospitalizations: reports: other (Unknown ) - IMMUNIZATION STATUS Childhood Immunizations: UTD, See Nurse Assessment Flu Vaccine: See Nurse Assessment - FAMILY HISTORY Family History: reviewed, not pertinent Physical Exam-General - PHYSICAL EXAM-ADULT Initial Vital Signs Reviewed: Yes - CONSTITUTIONAL General Appearance: appears well, alert, no apparent distress - EYES Eyes: PERRL/EOMI - HEAD, EARS, NOSE, MOUTH & THROAT HENMT: normocephalic/atraumatic, moist mucous membranes, normal ENT inspection - NECK Neck: non-tender, full range of motion, supple, normal inspection - RESPIRATORY Respiratory: chest non-tender, lungs clear, normal breath sounds, no pleuratic chest pain, no respiratory distress, no accessory muscle use - CARDIOVASCULAR Cardiovascular: normal peripheral pulses, regular rate, rhythm, no edema, no gallop, no JVD, no murmur - GASTROINTESTINAL (ABDOMEN) Abdominal Exam: normal bowel sounds, soft, no organomegaly, no pulsatile mass, tenderness (mild lower abdo tenderness with palpation) - LYMPHATIC Lymphatic: no adenopathy - MUSCULOSKELETAL Back Exam: normal inspection, no CVA tenderness, no vertebral tenderness Extremity: normal range of motion, non-tender, normal gait, normal inspection, no pedal edema, no calf tenderness, normal capillary refill - SKIN Integumentary: normal color, normal turgor, warm/dry - NEUROLOGIC Neurologic: licensed tax consultant II-XII nml as tested, grossly normal, no motor/sensory deficits - PSYCHIATRIC Psych/Mental Status: normal mood/affect, normal thought content, normal thought process, oriented x 3 Progress - PLAN OF CARE/RESULTS Progress/Plan/Lab Results: Orders Category Date Time Status CBC WITH ELECTRONIC DIFF [HEME] Stat Lab 09/23/18 04:00 Results COMPREHENSIVE METABOLIC PANEL [CHEM] Stat Lab 09/23/18 04:00 Received LACTATE, PLASMA [CHEM] Stat Lab 09/23/18 04:00 Received PROTIME WITH INR [COAG] Stat Lab 09/23/18 04:09 Uncollected PTT [COAG] Stat Lab 09/23/18 04:09 Uncollected TYPE & SCREEN [BBK] Stat Lab 09/23/18 04:00 Received 0.9% Sodium Chloride Inj [Ns] 1,000 ml Med 09/23/18 04:04 Discontinued .ROUTE As Directed 0.9% Sodium Chloride Inj [Ns] 1,000 ml Med 09/23/18 04:02 Active IV 999 mls/hr Result Diagrams: 09/23/18 04:00 09/23/18 04:00 - CONSULTS/PCP/HOSPITALIST Notification #1 *Consult/PCP/Hospitalist*: Dr Rodriguez Time Discussed: 05:51 Consult Disposition: Will see in ED, Admit Departure - Departure Date of Disposition Decision: 09/23/18 Time of Disposition Decision: 05:51 DIAGNOSIS: GI bleed, Sepsis, Renal insufficiency, Hypocalcemia Disposition: ADMITTED INPATIENT 09 Certified Medical Emergency: Emergent Condition: Poor - Critical Care Note This patient required my direct & personal management of CC.: Yes Total Time (mins): 32 Critical Care Statement: This patient required my direct personal management to treat or rule out processes, the absence of which, could potentiallly result in sudden, clinically significant life or limb threatening deterioration. Attestation - Physician/ EKTA Attestation Patient care was provided by Advanced Practice Provider:: No The physician spent face to face time with patient:: Yes Advanced Practice Provider documentation review:: Supervising physician onsite and consulted in the evaluation and care of this patient. The physician did have a face to face encounter with the patient.
[2018-09-23 04:30] LABS: ALB/GLOB RATIO 1.4; ALBUMIN 3.1 g/dL (3.5-5.0); CALCIUM 8.6 mg/dL (8.8-10.2); CREATININE 1.7 mg/dL (0.7-1.2); POTASSIUM 4.1 mmol/L (3.5-5.1); TOTAL BILIRUBIN 0.52 mg/dL (0.20-1.00); TOTAL PROTEIN 5.3 g/dL (6.3-8.3)
[2018-09-23 04:50] LABS: INR 2.66; PROTIME 30.3 Seconds (11.0-16.0)
[2018-09-23 04:51] LABS: PTT 41.6 Seconds (22.3-41.8)
[2018-09-23] MEDS ORDERED: LEVAQUIN 500 MG/D5W 500 MG/100 ML IVPB IV ONE (05:48)
[2018-09-23 07:14] LABS: URINE SOURCE CATH
[2018-09-23 07:19] LABS: BILIRUBIN URINE NEGATIVE (NEGATIVE); BLOOD URINE NEGATIVE (NEGATIVE); COLOR YELLOW; GLUCOSE URINE NEGATIVE (NEGATIVE); KETONE URINE NEGATIVE (NEGATIVE); LEUKOCYTES URINE NEGATIVE (NEGATIVE); NITRITE URINE NEGATIVE (NEGATIVE); PROTEIN URINE TRACE mg/dL (NEGATIVE); SP GRAVITY URINE 1.018; TURBIDITY URINE CLEAR (CLEAR); UROBILINOGEN URINE 2 mg/dL (NORMAL)
[2018-09-23 07:20] LABS: UR EPITHELIAL CELLS <10 /HPF (<10); URINE BACTERIA NEGATIVE /HPF; URINE RBC <10 /HPF (<10); URINE WBC <10 /HPF (<10)
[2018-09-23] MEDS ORDERED: ZOFRAN IV PRN (09:18)
[2018-09-23] MEDS ORDERED: PATIENT'S OWN MED TOP PRN (09:37)
[2018-09-23] MEDS: NS 1,000 ML IV SCH ×2 (09:50→21:22)
[2018-09-23] MEDS: HUMULIN R SUBQ SCH ×4 (09:50→21:49)
--- NOTE | 2018-09-23 10:03 | HISTORY AND PHYSICAL ---
PRIMARY CARE PHYSICIAN: Unknown. CHIEF COMPLAINT: Blood in stool, not feeling well. HISTORY OF PRESENTING ILLNESS: An 78-year-old male, with a history of chronic atrial fibrillation on Xarelto, coronary artery disease, CHF, hypertension, hyperlipidemia, and chronic kidney disease, who was sent from [facility] due to patient having blood in the stools. The patient is a poor historian, however, he states he was feeling weak. The patient was evaluated in the emergency department. As per ED physician he was Hemoccult positive. Due to his presenting symptoms, it was thought that he would need admission for further management. At the time of my examination, the patient denied any headache, fever, chills, chest pain, shortness of breath, or any weight changes but states that he does not feel well. PAST MEDICAL HISTORY: The past medical history includes chronic atrial fibrillation, coronary artery disease, CHF, hypertension, hyperlipidemia, CVA, and chronic kidney disease, stage 3. PAST SURGICAL HISTORY: Coronary stent, TURP, and hernia repair. ALLERGIES: Penicillin and Augmentin. CURRENT MEDICATIONS: Allopurinol 300 mg p.o. daily. Alprazolam 0.25 mg p.o. b.i.d. Atorvastatin 40 mg p.o. at bedtime. Calcitriol 0.2 mcg p.o. daily. Chlorthalidone 12.5 mg p.o. daily. Digoxin 125 mcg p.o. daily. Diltiazem CD 180 mg p.o. daily. Lexapro 10 mg p.o. daily. Lasix 20 mg p.o. daily. Glimepiride 2 mg p.o. b.i.d. Levothyroxine 50 mcg p.o. daily. Omeprazole 20 mg p.o. daily. Xarelto 15 mg p.o. at bedtime. Flomax 0.4 mg p.o. daily. SOCIAL HISTORY: He is a former smoker. No history of alcohol or illicit drug use. FAMILY HISTORY: No history of coronary disease. REVIEW OF SYSTEMS: Fourteen point review of system as listed in HPI. Other systems negative. PHYSICAL EXAMINATION: GENERAL: Cooperative, friendly male. He is resting more comfortably now. VITAL SIGNS: Temperature 98.2 degrees, pulse 104, respirations 16, blood pressure 103/61. HEENT: Atraumatic, normocephalic. Extraocular movements intact. PERRLA. NECK: No masses. CHEST: Clear to auscultation. CARDIOVASCULAR: Regular rate and rhythm. ABDOMEN: Soft. Positive bowel sounds. EXTREMITIES: No edema. NEUROLOGIC: He is awake, alert, and oriented x2. : No bladder distention. SKIN: Warm. LABORATORIES AND STUDIES: WBC 10.60, hemoglobin 11.6, hematocrit 36.4, platelets 260,000. Sodium 141, potassium 4.1, chloride 99, CO2 24, BUN is 26, creatinine is 1.7, glucose is 247. INR is 2.66. ASSESSMENT: An 78-year-old, elderly male, with a history of chronic atrial fibrillation, coronary artery disease, CHF, hypertension, and chronic kidney disease, who was sent from [facility] due to patient having blood in stools. He was evaluated in the emergency department and due to his presenting symptoms, he will need admission for further management. ASSESSMENT: 1. Gastrointestinal bleed, with the patient on Xarelto. 2. Chronic atrial fibrillation. 3. Coronary artery disease. 4. Hypertension. 5. Hyperlipidemia. 6. Chronic kidney disease. PLAN: 1. We will admit patient to [facility]. 2. We will keep patient NPO and monitor hemoglobin and hematocrit closely. 3. We will hold his Xarelto. 4. We will consult Gastroenterology. 5. Continue to monitor patient on telemetry. 6. We will hold off on his other medications for now. 7. We will continue with DVT prophylaxis with SCDs. 8. We will continue to follow and reassess and make further recommendations based on patient's clinical course. cc: Aramis Rodriguez MD
--- NOTE | 2018-09-23 10:08 | PROGRESS NOTE ---
DATE: 09/23/2018 SUBJECTIVE: He actually was admitted, I think, early this morning. He is followed by Dr. Susana Gonzalez. A 77-year-old brought into the emergency room. He was tired and confused but, apparently, he has had some bleeding from his rectum. PAST MEDICAL HISTORY: 1. Atrial fibrillation. 2. Coronary artery disease. 3. Congestive heart failure. 4. Hypertension. 5. Hyperlipidemia. 6. History of coronary artery disease with stenting. 7. Chronic obstructive pulmonary disease, currently on home oxygen. 8. Chronic gastroesophageal reflux disease. 9. History of kidney disease. 10. History of cerebrovascular accident. 11. History of diabetes mellitus, type 2. 12. He has had hernia repair and then lastly benign prostatic hypertrophy status post transurethral resection of the prostate in the past. His hematocrit was 36, hemoglobin 11. Chemistries: Creatinine 1.7, sodium 141, potassium 4.1, chloride 99. Looking at his creatinine, I can see where his creatinine was 1.5 back in June but it has run between 1.5 and 2.00, so it looks like it is at baseline. PHYSICAL EXAMINATION: He is awake and alert, and he never saw the blood but he understands why he is here. Temperature 98.2, pulse 84, respirations 19, blood pressure 114/72. Pupils are equal and round. Lungs are clear in all lung molina. Cardiovascular: Regular rhythm and rate without murmur or S3. Abdomen is soft. Skin is warm and dry. LABORATORY DATA: White count 10,600. Hematocrit 36. Hemoglobin 11. Sodium 141, potassium 4.1, chloride 99. BUN 26, creatinine 1.7. AST is 9. ALT was 6. Troponin is 0.014. Albumin is 2.2. Pro Time is 30, PTT was 41. He is apparently on Xarelto. Urinalysis unremarkable. Review of his orders: Right now, he is on sliding scale and his medications at home. He was on 1. Lipitor 40 mg at bedtime. 2. Allopurinol 300 mg a day. 3. Alprazolam 2.5 mg b.i.d. 4. Calcitriol 0.25 mg a day. 5. Chlorthalidone 12.5 mg a day. 6. Digoxin 125 mcg a day. 7. Cardizem CD 180 mg a day. 8. Lexapro 10 mg a day. 9. Lasix 20 mg daily. 10. Amaryl 1 mg p.o. b.i.d. 11. Glimepiride 2 mg b.i.d. 12. Synthroid 50 mcg a day. 13. Prilosec 40 mg a day. 14. He is taking Xarelto at 15 mg at bedtime, and I presume this is for his underlying atrial fibrillation. 15. He is on Flomax 0.[address] Estevez from has been consulted. We will hold his Xarelto and watch his hemoglobin and hematocrit. cc: Bear Marks MD
[2018-09-23 13:31] LABS: HEMATOCRIT 31.1 % (42.0-52.0); HEMOGLOBIN 9.8 g/dL (14.0-18.0)
[2018-09-23] MEDS ORDERED: DIPRIVAN 1% ONE (16:07)
[2018-09-23] MEDS ORDERED: XYLOCAINE-MPF 2% ONE (16:07)
[2018-09-23] MEDS ORDERED: NEO-SYNEPHRINE ONE (16:50)
[2018-09-23] MEDS ORDERED: SODIUM CHLORIDE 0.9% 10 ML ONE (16:50)
[2018-09-23] MEDS ORDERED: EPINEPHRINE SYRINGE ONE (16:51)
[2018-09-23 20:46] LABS: HEMOGLOBIN 9.9 g/dL (14.0-18.0)
[2018-09-23] MEDS: KENALOG 0.1% OINTMENT SCH (21:33)
[2018-09-23] MEDS: XANAX PO SCH (21:33)
[2018-09-23] MEDS: LIPITOR PO SCH (21:33)
[2018-09-23] MEDS: LAC-HYDRIN 12% LOTION TOP SCH ×2 (21:33→21:49)
--- NOTE | 2018-09-24 01:25 | GASTROENTEROLOGY CONSULTATION ---
DATE: 09/23/2018 REASON FOR CONSULTATION: Rectal bleeding. HISTORY OF PRESENT ILLNESS: An 78-year-old gentleman who on the had screening colonoscopy. He had several polyps in the cecum, ascending and transverse colon, and rectum. He was supposed to be off Xarelto for 2 weeks. Unfortunately, he has received some, and he started having rectal bleeding. PAST MEDICAL HISTORY: Chronic atrial fibrillation, CAD, CHF, hypertension, hyperlipidemia, CVA. PAST SURGICAL HISTORY: Coronary stents, TURP, hernia repair. ALLERGIES: Penicillin, Augmentin. CURRENT MEDICATIONS: Xarelto, digoxin 125 p.o. daily, Lasix 20 daily, omeprazole 20 daily. SOCIAL HISTORY: He is a former smoker. No history of alcohol or drug use. Currently now in [facility]. FAMILY HISTORY: Negative. REVIEW OF SYSTEMS: Fourteen-point negative other than being weak. PHYSICAL EXAMINATION: General: Elderly gentleman resting comfortably. Vital Signs: Temperature 98 degrees, pulse 90, respirations 16, blood pressure 103/60. HEENT: Conjunctival pallor. Neck: Supple. Lungs: Clear. Heart: Regular rate and rhythm. Abdomen: Soft. Extremities: No edema. Neurological: Alert and oriented. LABORATORY DATA: White count 11.6, hematocrit 36.4 and dropped to date to 31. IMPRESSION: 1. Gastrointestinal bleed, possibly post polypectomy. 2. The patient is on Xarelto. 3. Chronic atrial fibrillation. 4. Hypertension. 5. Hyperlipidemia. 6. Chronic kidney disease. PLAN: We will proceed with colonoscopy later today. cc: Rinku Estevez MD
--- NOTE | 2018-09-24 03:10 | OPERATIVE NOTE ---
PROCEDURE DATE: 09/23/2018 PROCEDURE: Colonoscopy, with control of the bleeding from cecal polypectomy site. PREOPERATIVE DIAGNOSIS: Post polypectomy bleed. POSTOPERATIVE DIAGNOSIS: Post polypectomy bleed. DESCRIPTION OF PROCEDURE: After informed consent and adequate intravenous sedation by Anesthesia, the scope introduced all the way into the cecum. The patient has active arterial bleeding from polypectomy site, identified in the cecum. This was immediately injected with epinephrine, and 2 clips were applied across. There was complete cessation of bleeding. The scope was withdrawn. The patient tolerated the procedure well, without any immediate complications. Because it is cecum, if he has any further bleeding, he needs a surgical resection of the area, but hopefully the clips and epinephrine has taken care of it for now. cc: Rinku Estevez MD
[2018-09-24] MEDS: NS 1,000 ML IV SCH (04:30)
[2018-09-24] MEDS: PRILOSEC PO SCH ×2 (05:34→06:09)
[2018-09-24] MEDS: SYNTHROID PO SCH ×2 (05:34→06:09)
[2018-09-24 05:43] LABS: BASO# 0.03 X1000 (0.0-0.2); BASO% 0.5 % (0.0-0.8); EOS# 0.17 X1000 (0.0-0.7); EOS% 2.8 % (0.0-10.0); HEMATOCRIT 27.3 % (42.0-52.0); HEMOGLOBIN 8.8 g/dL (14.0-18.0); IMM GRAN# 0.03 X1000 (0.0-0.04); IMM GRAN% 0.5 % (0.0-0.5); LYMPH% 22.7 % (20.5-51.1); MCH 28.5 PG (27-31); MCHC 32.2 g/dL (33-37); MCV 88.3 FL (81-99); MONO# 0.55 X1000 (0.11-0.59); MONO% 8.9 % (1.7-9.3); MPV 9.5 FL (7.4-10.4); NEUT# 3.98 X1000 (1.4-6.5); NEUT% 64.6 % (42.2-75.2); PLT 212 X1000 (130-400); RBC 3.09 XMIL (4.7-6.1); RDW 14.9 % (11.5-14.5); WBC 6.16 X1000 (4.8-10.8)
[2018-09-24] MEDS: HUMULIN R SUBQ SCH ×4 (06:08→20:00)
[2018-09-24 07:38] LABS: CALCIUM 7.7 mg/dL (8.8-10.2); CREATININE 1.4 mg/dL (0.7-1.2); POTASSIUM 3.6 mmol/L (3.5-5.1)
--- NOTE | 2018-09-24 08:14 | PROGRESS NOTE ---
DATE: 09/24/2018 SUBJECTIVE: Mr. Vincent is awake and alert. He is comfortable. He has noticed just a little bit of blood streaking in his stool but otherwise has not noticed a lot of blood. OBJECTIVE: Vital Signs: Temperature 98.4 degrees, pulse 80, respirations 18, blood pressure 130/70. HEENT: Pupils are equal and round. Lungs: Clear in all lung molina. Cardiovascular Examination: Regular rhythm and rate without murmur or S3. Abdomen: Soft, nondistended. Skin: Warm and dry. Is and Os: Urine output was 4 L. Review of Lab: This morning, hematocrit is stable. Well, he has had slow drop really. His hematocrit was 36. It is now down to 27. Hemoglobin went from 11.6 to 8.8. Probably some of that is volume expansion too. Sodium 140, potassium 3.6, chloride 103, BUN 27, creatinine 1.4. His creatinine was 1.7 when he came in. ASSESSMENT AND PLAN: 1. The patient had a colonoscopy. He has bleeding from the cecal polypectomy site so post polypectomy bleed. Dr. Estevez went and looked at it. The patient has active arterial bleeding from the polypectomy site identified in the cecum. Dr. Estevez injected it with epinephrine and 2 clips were applied across the vessel. There was complete cessation of bleeding. The scope was withdrawn. The patient appears comfortable. We will watch his hemoglobin and hematocrit. 2. History of atrial fibrillation, rate is controlled. 3. Coronary artery disease. No sign of active ischemia. 4. History of congestive heart failure, appears well compensated. Continue present medication. 5. Hypertension. 6. Hyperlipidemia. 7. History of coronary artery disease as above with stenting. 8. Chronic obstructive pulmonary disease. He is on oxygen at home. Breathing is comfortable. No problem with air or gas exchange. 9. History of gastroesophageal reflux. 10. History of chronic kidney disease. Renal function is actually improved with some fluid administration. Creatinine went from 1.7 to 1.4. 11. History of cerebrovascular accident. 12. History of diabetes mellitus type 2. Blood sugars have been well controlled. 13. We will observe and hopefully he can be discharged in the morning. 14. He has a history of gout. He is on allopurinol 300 mg daily. 15. He has benign prostatic hypertrophy. He is on Flomax 0.4 mg a day. 16. He has a history of hypothyroidism. He is on Synthroid 50 mcg daily. 17. For his atrial fibrillation, he is on diltiazem CD 180 mg a day and he is not on any blood thinner. cc: Bear Marks MD
[2018-09-24] MEDS: LEXAPRO PO SCH (10:02)
[2018-09-24] MEDS: LANOXIN PO SCH (10:02)
[2018-09-24] MEDS: ROCALTROL PO SCH (10:02)
[2018-09-24] MEDS: FLOMAX PO SCH (10:02)
[2018-09-24] MEDS: XANAX PO SCH ×2 (10:02→20:00)
[2018-09-24] MEDS: HYGROTON PO SCH (10:03)
[2018-09-24] MEDS: ZYLOPRIM PO SCH (10:03)
[2018-09-24] MEDS: CARDIZEM CD PO SCH (10:03)
[2018-09-24] MEDS: LASIX PO SCH (10:03)
[2018-09-24] MEDS: LAC-HYDRIN 12% LOTION TOP SCH ×3 (10:04→20:01)
[2018-09-24] MEDS: KENALOG 0.1% OINTMENT SCH ×2 (10:04→20:00)
--- NOTE | 2018-09-24 16:08 | GASTROENTEROLOGY PROGRESS NOTE ---
DATE: 09/24/2018 SUBJECTIVE: Awake, alert. Stool has cleared other than streaks of blood and old clots through the night. Patient had significant blood in the stool. I did a colonoscopy so most of it is most likely old. OBJECTIVE: Vital Signs: Temperature 98 degrees, pulse 80, respirations 18, blood pressure 130/70. Had conjunctival pallor. Neck: Supple. Trachea midline. Heart and lungs: Normal. Abdomen: Soft. RETAIL TEAM LEADER: Awake, alert. LAB: Hematocrit 27, creatinine 1.4. IMPRESSION AND PLAN: 1. Post polypectomy bleed status post epinephrine and clips. 2. Atrial fibrillation rate controlled. 3. Coronary artery disease. 4. Congestive heart failure. 5. Hyperlipidemia. 6. History of cerebrovascular accident. 7. Benign prostatic hyperplasia. 8. We need to keep him on aspirin or any anticoagulant for at least 3 weeks from now. I will decide today whether to advance the diet, I will take another look before we discharge him back alf. cc: Rinku Estevez MD
[2018-09-24] MEDS: LIPITOR PO SCH (20:00)
[2018-09-25] MEDS: SYNTHROID PO SCH (06:34)
[2018-09-25] MEDS: PRILOSEC PO SCH (06:34)
[2018-09-25] MEDS: HUMULIN R SUBQ SCH ×4 (06:34→21:16)
--- NOTE | 2018-09-25 09:02 | PROGRESS NOTE ---
DATE: 09/25/2018 SUBJECTIVE: Mr. Vincent says that he does not feel real good today. Did not sleep a whole lot last night but he is not in any pain. His breathing is comfortable. I think he has some mild confusion. Does know he is in the hospital and I think he is aware of what we are concerned about as far as his GI bleeding. OBJECTIVE: Vital Signs: His temperature is 97.9 degrees, pulse 76, respirations 18, blood pressure 125/65. HEENT: Pupils are equal. No distended neck veins. Lungs: Clear in all lung molina. Cardiovascular Examination: Regular rhythm and rate without murmur or S3. Abdomen: Soft. Skin: Warm and dry. Is and Os: Urine output is 3500 mL. ASSESSMENT AND PLAN: 1. Postpolypectomy bleed, status post epinephrine and clips. Seems to be doing well. 2. Atrial fibrillation. Rate is controlled. 3. Coronary artery disease. 4. Congestive heart failure. Volume status appears well compensated. 5. Hyperlipidemia. 6. History of cerebrovascular accident. 7. Benign prostatic hypertrophy. 8. We will keep him off his aspirin and anticoagulant for about 3 weeks, and advance his diet. His blood pressures look good. His hematocrit was 27, hemoglobin 8.8. We will advance his diet slowly and also start some physical therapy. Try and get him up out of bed and get some strength. I will advance him to a full liquid diet today. cc: Bear Marks MD
[2018-09-25] MEDS: CARDIZEM CD PO SCH (09:08)
[2018-09-25] MEDS: LEXAPRO PO SCH (09:08)
[2018-09-25] MEDS: HYGROTON PO SCH (09:08)
[2018-09-25] MEDS: FLOMAX PO SCH (09:08)
[2018-09-25] MEDS: ROCALTROL PO SCH (09:08)
[2018-09-25] MEDS: LASIX PO SCH (09:08)
[2018-09-25] MEDS: ZYLOPRIM PO SCH (09:08)
[2018-09-25] MEDS: XANAX PO SCH ×2 (09:09→21:15)
[2018-09-25] MEDS: LANOXIN PO SCH (09:09)
[2018-09-25] MEDS: KENALOG 0.1% OINTMENT SCH ×2 (09:10→21:16)
[2018-09-25] MEDS: LAC-HYDRIN 12% LOTION TOP SCH ×3 (09:10→17:10)
[2018-09-25] MEDS: CENTRUM SILVER PO SCH (11:17)
[2018-09-25] MEDS: ICAR-C PO SCH ×2 (11:17→21:15)
[2018-09-25 12:45] LABS: BASO# 0.04 X1000 (0.0-0.2); BASO% 0.7 % (0.0-0.8); EOS# 0.12 X1000 (0.0-0.7); EOS% 2.2 % (0.0-10.0); HEMATOCRIT 25.7 % (42.0-52.0); HEMOGLOBIN 8.1 g/dL (14.0-18.0); LYMPH# 1.07 X1000 (1.2-3.4); LYMPH% 19.7 % (20.5-51.1); MCHC 31.5 g/dL (33-37); MCV 88.9 FL (81-99); MONO# 0.51 X1000 (0.11-0.59); MONO% 9.4 % (1.7-9.3); MPV 9.2 FL (7.4-10.4); NEUT# 3.68 X1000 (1.4-6.5); PLT 218 X1000 (130-400); RBC 2.89 XMIL (4.7-6.1); RDW 15.4 % (11.5-14.5); WBC 5.42 X1000 (4.8-10.8)
--- NOTE | 2018-09-25 12:45 | GASTROENTEROLOGY PROGRESS NOTE ---
DATE: 09/25/2018 SUBJECTIVE: The patient is resting in bed. He denies any fevers. He denies any nausea, vomiting, or vomiting blood. His last bowel was yesterday. He has not moved his bowels yet. OBJECTIVE: Vital Signs: Temperature of 97.9, pulse rate 72, respiratory rate 18, blood pressure 120/65, saturating 90% on nasal cannula. Body weight of 187 pounds 14.4 ounces. BMI 25.5 kg his vision is moderate lying in bed, in no acute distress. HEENT: Pale conjunctivae. No icterus; Neck supple. Abdomen soft, nontender, nondistended. No guarding. Extremities: No cyanosis, clubbing. Neurologic: She is awake, alert, and answers simple questions. LABORATORY DATA: His blood glucose is 168. No labs were checked other than that today. IMPRESSION AND PLAN: 1. Postpolypectomy bleeding, status post epinephrine injection and hemoclipping. No signs of active bleeding so far today. We will check a CBC today. We will transfuse as needed. 2. Atrial fibrillation is under control. He is off his anticoagulation for now until his hematocrit stabilizes. 3. Coronary artery disease, aware. 4. Congestive heart failure, aware. 5. History of cerebrovascular accident, aware. 6. Benign prostatic hyperplasia, aware. 7. The patient's hematocrit has stabilized. We will slowly advance his diet. We will avoid any NSAIDs for now. 8. Anemia. We will start him on iron-C b.i.d., multivitamin once daily. 9. PPIs. 10. The patient wants to go home today, if he leaves the hospital today, he will need to see Dr. Estevez in 1 week after discharge to check his CBC. The above discussed with the patient and all questions answered. Please call us with any further questions. cc: MD Bear Arenas MD MTDD
[2018-09-25] MEDS: LIPITOR PO SCH (21:15)
[2018-09-26] MEDS: HUMULIN R SUBQ SCH ×5 (05:48→21:06)
[2018-09-26] MEDS: PRILOSEC PO SCH ×2 (05:48→06:25)
[2018-09-26] MEDS: SYNTHROID PO SCH ×2 (05:48→06:25)
[2018-09-26] MEDS: LASIX PO SCH (09:36)
[2018-09-26] MEDS: HYGROTON PO SCH (09:36)
[2018-09-26] MEDS: ZYLOPRIM PO SCH (09:37)
[2018-09-26] MEDS: FLOMAX PO SCH (09:37)
[2018-09-26] MEDS: LANOXIN PO SCH (09:37)
[2018-09-26] MEDS: CARDIZEM CD PO SCH (09:37)
[2018-09-26] MEDS: XANAX PO SCH ×2 (09:37→21:20)
[2018-09-26] MEDS: ICAR-C PO SCH ×2 (09:37→21:20)
[2018-09-26] MEDS: LEXAPRO PO SCH (09:37)
[2018-09-26] MEDS: CENTRUM SILVER PO SCH (09:37)
[2018-09-26] MEDS: ROCALTROL PO SCH (09:37)
[2018-09-26] MEDS: KENALOG 0.1% OINTMENT SCH ×2 (09:38→21:20)
[2018-09-26] MEDS: LAC-HYDRIN 12% LOTION TOP SCH ×3 (09:38→17:14)
--- NOTE | 2018-09-26 11:17 | PROGRESS NOTE ---
DATE: 09/26/2018 SUBJECTIVE: This morning, Mr. Vincent refers to be doing fairly okay. No new complaints. He denies any rectal bleed or any form of GI bleed. He also denies being dizzy. OBJECTIVE: Vital: Blood pressure is 130/54, pulse 68, respiration 18, temperature 98.7 degrees. General: Mr. Vincent is an 78-year-old gentleman. He was in bed. He was not in any distress. HEENT: Mucosa is pink and moist. Anicteric. Acyanotic. Neck: Supple. Chest: Good air entry bilaterally. There were no crepitations, no rhonchi. Cardiovascular : Regular rate and rhythm. Abdomen: Soft, nontender. Bowel sounds present. Extremities: No pedal edema. Central nervous system: The patient is awake and alert, oriented to person place, disoriented to time. LABORATORY DATA: None for today. Glucose is 154. CURRENT MEDICATIONS: Reviewed, includin. Xanax 0.5 b.i.d. 2. Lipitor 40 mg p.o. at bedtime. 3. Calcitriol 0.25 mcg daily. 4. Chlorthalidone 12.5 p.o. daily. 5. Digoxin 125 mcg p.o. daily. 6. Diltiazem 180 p.o. daily. 7. Lasix 20 mg daily. 8. Insulin sliding scale. 9. Levothyroxine 50 mcg daily. 10. Multivitamin. 11. Omeprazole 40 mg daily. 12. Flomax 0.4 p.o. daily. ASSESSMENT: 1. Post polypectomy bleeding at the cecal level. The patient is status post epinephrine injection and hemoclipping. There are no obvious signs of active bleeding as at the moment the patient denies any melenic stool or mckayla bright red blood. He also denies being orthostatic. We are going to check the hemoglobin today. If he is fairly stable, will have him discharged. 2. Atrial fibrillation, currently controlled. The patient is off anticoagulation because of active gastrointestinal bleed. This will be re-initiated at a later date with discussion with his computer forensic examiner. 3. History of coronary artery disease, stable. 4. Previous history of cerebrovascular accident. 5. Benign prostatic hypertrophy, on Flomax. 6. History of congestive heart failure with preserved ejection fraction. The patient is currently euvolemic. PLAN: In general, I think Mr. Vincent is fairly stable. Will be pending his hemoglobin and hematocrit to compared to yesterday. If it is stable, we will be able to discharge him today. He is currently off his anticoagulation because of the massive GI bleed that needed 2 units of PRBC transfusion. This will be re-initiated once parameters are stable, and this will be done on an outpatient basis. The patient is tolerating his full liquid diet and we will advise that he maintain on soft GI for at least about a week. cc: Liban Gu MD Addendum: I was notified by nurse that patient another bout of [place] bleed. A repeat Hb is 7.9 continue observation. Consult surgery to be on standby. Will repeat Hb later today MTDD
--- NOTE | 2018-09-26 11:19 | Diag Imaging Result Doc PS360 ---
EXAM: CHEST-PORTABLE 09/26/2018 HISTORY: long term placement TECHNIQUE: AP portable at 1110 COMMENT: Compared to the previous study of 05/01/2018 the opacity in the right lower lobe has largely resolved. There is some tenting of the diaphragm on the right. The heart size and pulmonary vascularity appear to be within normal limits. IMPRESSION: Improved right lower lobe pneumonia. Electronically signed by Hang Sy 09/26/2018 11:17 AM
[2018-09-26 11:36] LABS: HEMATOCRIT 24.9 % (42.0-52.0); HEMOGLOBIN 7.9 g/dL (14.0-18.0)
[2018-09-26] MEDS ORDERED: GOLYTELY PO ONE (14:58)
[2018-09-26 16:36] LABS: HEMATOCRIT 25.2 % (42.0-52.0); HEMOGLOBIN 8.1 g/dL (14.0-18.0)
[2018-09-26] MEDS ORDERED: ELIMITE 5% CREAM TOP ONE (17:33)
--- NOTE | 2018-09-26 18:25 | GASTROENTEROLOGY PROGRESS NOTE ---
DATE: 09/26/2018 SUBJECTIVE: No acute overnight events. The patient denies nausea, vomiting, fevers, chest pain, SOB, abdominal pain. He has some rectal bleeding this AM. OBJECTIVE: Vital Signs: T 97.3, HR 53, RR 13, BP 98/66, O2 sat96% on RA GEN: awake, alert, NAD HEENT: Sclerae anicteric. Moist mucous membranes. Neck: No JVD. No lymphadenopathy Cardiac: Regular rate and rhythm, no murmurs. Lungs: CTAB, no wheezing or crackles Abdomen: soft, NT/ND, NABS, no rebound or guarding Extremities: No clubbing, cyanosis or edema. Neurologic: Nonfocal Psychiatric: Normal affect. LABORATORY DATA: hgb 8.1 from 7.9 ASSESSMENT AND PLAN: Mr. Vincent is a 78M who presents with acute blood loss anemia from post- polypectomy bleed s/p colonoscopy revealing active arterial bleeding from polypectomy site in the cecum s/p epinephrine and clips x2. He continues to have downtrending hgb with rectal bleed that could represent old blood vs persistent bleeding. Will plan to prep with 4L golytely and keep NPO for possible colonoscopy tomorrow if needed. #Post-polypectomy bleed: prep in case we need to do repeat colonoscopy; NPO after MN; on PPI qdaily #LGIB: from above #Anemia; trending H/H, transfuse prn goal hgb 7-8 #AFIB: on digoxin; holding anticoagulation in setting of GI bleed #CHF: preserved EF; no exacerbation currently Will follow with you. Please call with questions or concerns. [facility]
[2018-09-26] MEDS: LIPITOR PO SCH (21:20)
[2018-09-27 05:51] LABS: BASO# 0.04 X1000 (0.0-0.2); BASO% 0.6 % (0.0-0.8); EOS# 0.26 X1000 (0.0-0.7); EOS% 3.9 % (0.0-10.0); HEMATOCRIT 25.6 % (42.0-52.0); HEMOGLOBIN 8.1 g/dL (14.0-18.0); IMM GRAN# 0.02 X1000 (0.0-0.04); IMM GRAN% 0.3 % (0.0-0.5); LYMPH# 1.33 X1000 (1.2-3.4); LYMPH% 20.2 % (20.5-51.1); MCH 28.5 PG (27-31); MCHC 31.6 g/dL (33-37); MCV 90.1 FL (81-99); MONO# 0.55 X1000 (0.11-0.59); MONO% 8.3 % (1.7-9.3); MPV 9.2 FL (7.4-10.4); NEUT# 4.39 X1000 (1.4-6.5); NEUT% 66.7 % (42.2-75.2); PLT 227 X1000 (130-400); RBC 2.84 XMIL (4.7-6.1); RDW 15.7 % (11.5-14.5); WBC 6.59 X1000 (4.8-10.8)
[2018-09-27 06:12] LABS: ALB/GLOB RATIO 1.6; CALCIUM 8.3 mg/dL (8.8-10.2); CREATININE 1.3 mg/dL (0.7-1.2); POTASSIUM 3.3 mmol/L (3.5-5.1); TOTAL BILIRUBIN 0.68 mg/dL (0.20-1.00); TOTAL PROTEIN 4.9 g/dL (6.3-8.3)
[2018-09-27 06:22] LABS: INR 1.1; PROTIME 15.1 Seconds (11.0-16.0)
[2018-09-27] MEDS: HUMULIN R SUBQ SCH ×4 (06:25→20:30)
[2018-09-27] MEDS: SYNTHROID PO SCH (06:26)
[2018-09-27] MEDS: PRILOSEC PO SCH (06:26)
[2018-09-27] MEDS: LEXAPRO PO SCH (10:02)
[2018-09-27] MEDS: HYGROTON PO SCH (10:02)
[2018-09-27] MEDS: ZYLOPRIM PO SCH (10:03)
[2018-09-27] MEDS: FLOMAX PO SCH (10:03)
[2018-09-27] MEDS: CARDIZEM CD PO SCH (10:03)
[2018-09-27] MEDS: LANOXIN PO SCH (10:03)
[2018-09-27] MEDS: KENALOG 0.1% OINTMENT SCH ×2 (10:04→20:32)
[2018-09-27] MEDS: LASIX PO SCH (10:04)
[2018-09-27] MEDS: LAC-HYDRIN 12% LOTION TOP SCH ×3 (10:04→17:18)
[2018-09-27] MEDS: CENTRUM SILVER PO SCH (10:05)
[2018-09-27] MEDS: ICAR-C PO SCH ×2 (10:05→20:32)
[2018-09-27] MEDS: ROCALTROL PO SCH (10:05)
[2018-09-27] MEDS: XANAX PO SCH ×2 (10:06→20:32)
--- NOTE | 2018-09-27 13:49 | GASTROENTEROLOGY PROGRESS NOTE ---
DATE: 09/27/2018 SUBJECTIVE: No acute overnight events. Patient drank 1/2 of the golytely overnight with some residual blood in stool. The patient denies nausea, vomiting , fevers, chest pain, SOB, abdominal pain. OBJECTIVE: Vital Signs: T 97.8, HR 50, RR 8 BP 110/50, O2 sat 94% on RA GEN: awake, alert, NAD HEENT: Sclerae anicteric. Moist mucous membranes. Neck: No JVD. No lymphadenopathy Cardiac: Regular rate and rhythm, no murmurs. Lungs: CTAB, no wheezing or crackles Abdomen: soft, NT/ND, NABS, no rebound or guarding Extremities: No clubbing, cyanosis or edema. Neurologic: Nonfocal Psychiatric: Normal affect. LABORATORY DATA: hgb 8.1 stable ASSESSMENT AND PLAN: Mr. Vincent is a 78M who presents with acute blood loss anemia from post- polypectomy bleed s/p colonoscopy revealing active arterial bleeding from polypectomy site in the cecum s/p epinephrine and clips x2 His hgb has remained stable over last 24 hours. Blood in stools during prep likely represents old blood #Post-polypectomy bleed: resume clear liquid diet and trending hgb dailyy; on PPI #LGIB: from above #Anemia; trending H/H, transfuse prn goal hgb 7-8 #AFIB: on digoxin; holding anticoagulation in setting of GI bleed #CHF: preserved EF; no exacerbation currently #DISPO: if hgb stable in AM, then patient can resume home medications and be discharged Will follow with you. Please call with questions or concerns. [facility]ITAL[facility]
--- NOTE | 2018-09-27 16:27 | PROGRESS NOTE ---
DATE: 09/27/2018 SUBJECTIVE: This morning Mr. Vincent refers to be doing fairly okay. Has not had any more rectal bleed. Hemoglobin and hematocrit have been fairly stable. OBJECTIVE: Vital signs: Blood pressure is 110/50, pulse is 50, respiration is 18, temperature 97.8 degrees. Patient is saturating 94% on room air. General: Mr. Vincent is an 78-year-old, very pleasant, gentleman. He was in bed, not in distress. HEENT: Mucosa is pink and moist. Anicteric. Acyanotic. Neck: Supple. Respiratory: There is good air entry bilaterally. No crepitations. No rhonchi. No accessory muscle use. Cardiovascular: Regular rate and rhythm. No murmurs. No rubs. No gallops. GI: Abdomen is soft, nontender. Bowel sounds are present. Extremities: No pedal edema. Distal pulses present. DIRECT MARKETING SPECIALIST: Patient is awake, alert, oriented. There is no focal neurological deficit. LABORATORY DATA: WBC is 6.59, hemoglobin is 8.1, platelet count of 227,000. Chemistry is also reviewed. Potassium is 3.3 and creatinine is down to 1.3. CURRENT MEDICATIONS: Have also been reviewed. ASSESSMENT: 1. Post polypectomy bleeding at the cecal level. Patient is status post colonoscopy, epinephrine injection, and hemoclipping was done. The patient's hemoglobin and hematocrit this morning seems to be fairly stable and I am told he has not had any more melenic stool or rectal bleed. We will repeat his hemoglobin and hematocrit tomorrow. If it continues to be stable without any bleeding, I think we will be able to discharge him. 2. History of atrial fibrillation. Currently rate controlled. Patient is off anticoagulation because of GI bleed. 3. History of coronary artery disease, stable. 4. Previous history of cerebrovascular accident. 5. Benign prostatic hypertrophy. Patient is on Flomax. 6. History of congestive heart failure with preserved ejection fraction. Patient is currently euvolemic. PLAN: So in general Mr. Vincent is fairly stable. He got admitted because of rectal bleed because of lower GI bleed from polypectomy site. The patient had a colonoscopy and epinephrine treatment, as well as hemoclipping was done. He seems to be fairly stable. Surgery was consulted at some point, but I do not think they plan to do any intervention. I have spoken with GI on the case and he plans to start the patient on clear liquids and advance as tolerated, observe hemoglobin and hematocrit, repeat it tomorrow, and hopefully can get him discharged. cc: Liban Gu MD
[2018-09-27] MEDS: LIPITOR PO SCH (20:32)
--- NOTE | 2018-09-28 02:39 | GENERAL SURGERY CONSULTATION ---
DATE: 09/27/2018 HISTORY OF PRESENT ILLNESS: This is an 78-year-old gentleman who underwent a cecal polypectomy recently. He developed bleeding from the lower gastrointestinal tract, and had a control of hemorrhage on the 23 of September. He has had some intermittent bleeding since, but his hematocrit has been stable in the last couple days at 25. Some old-appearing blood yesterday. He started a bowel prep, and had no bleeding noted with that. He has some vague abdominal discomfort, but no mckayla pain. Hemodynamically, he has been stable. MEDICAL HISTORY: Significant for colon polyps, the pathology which is pending. History of CVA, hypertension, hyperlipidemia, coronary artery disease, CKD, atrial fibrillation. SURGICAL HISTORY: He has a coronary stent, TURP, and a hernia repair. SOCIAL HISTORY: Significant for history of smoking. No alcohol. No drugs. FAMILY HISTORY: Reviewed, noncontributory. REVIEW OF SYSTEMS: Ten point negative. PHYSICAL EXAMINATION: Vital Signs: Temperature 97.8 degrees, pulse 50, blood pressure 110/50, oxygen saturation is 94%. General: He is alert. HEENT: No scleral icterus. No cervical mass. Cardiovascular: Normal rate. Pulmonary: No increased work of breathing. Abdomen: Soft, nontender, nondistended. Extremities: Warm and dry, without jaundice. Psychiatric: Appropriate affect. Neurologic: No gross deficits. Lymphatic: No diffuse adenopathy noted. LABORATORY STUDIES: White count 6, hematocrit 25, and it has been that way since the . Platelets 227,000. INR is 1.10. Creatinine is 1.3. This is down from a high of 1.7. Glucose 115 to 134. Bilirubin is 0.6. AST, ALT, and alkaline phosphatase are normal. Albumin is low at 3. ASSESSMENT AND PLAN: This is an 78-year-old gentleman with a post polypectomy bleed. This seems to have resolved. If he rebleeds, he may require a right colectomy. We discussed this. We will follow him closely, withhold anticoagulants, correct coagulopathy, and transfuse as needed. cc: Leeann Butler MD
[2018-09-28 05:33] LABS: BASO# 0.03 X1000 (0.0-0.2); BASO% 0.5 % (0.0-0.8); EOS% 4.8 % (0.0-10.0); HEMOGLOBIN 8.2 g/dL (14.0-18.0); LYMPH# 1.24 X1000 (1.2-3.4); MCH 28.7 PG (27-31); MCHC 31.5 g/dL (33-37); MCV 90.9 FL (81-99); MONO# 0.52 X1000 (0.11-0.59); MONO% 8.4 % (1.7-9.3); NEUT# 4.12 X1000 (1.4-6.5); NEUT% 66.3 % (42.2-75.2); PLT 257 X1000 (130-400); RBC 2.86 XMIL (4.7-6.1); RDW 15.9 % (11.5-14.5); WBC 6.21 X1000 (4.8-10.8)
[2018-09-28 05:42] LABS: CALCIUM 8.3 mg/dL (8.8-10.2); CREATININE 1.5 mg/dL (0.7-1.2); POTASSIUM 3.1 mmol/L (3.5-5.1)
[2018-09-28] MEDS: HUMULIN R SUBQ SCH ×3 (06:08→16:53)
[2018-09-28] MEDS: PRILOSEC PO SCH (06:18)
[2018-09-28] MEDS: SYNTHROID PO SCH (06:18)
[2018-09-28] MEDS ORDERED: KLOR-CON PO ONE (08:41)
[2018-09-28] MEDS: FLOMAX PO SCH (08:45)
[2018-09-28] MEDS: LASIX PO SCH (08:45)
[2018-09-28] MEDS: ICAR-C PO SCH (08:45)
[2018-09-28] MEDS: CENTRUM SILVER PO SCH (08:45)
[2018-09-28] MEDS: LEXAPRO PO SCH (08:45)
[2018-09-28] MEDS: ROCALTROL PO SCH (08:45)
[2018-09-28] MEDS: XANAX PO SCH (08:45)
[2018-09-28] MEDS: ZYLOPRIM PO SCH (08:45)
[2018-09-28] MEDS: CARDIZEM CD PO SCH (08:46)
[2018-09-28] MEDS: HYGROTON PO SCH (08:46)
[2018-09-28] MEDS: LANOXIN PO SCH (08:46)
[2018-09-28] MEDS: KENALOG 0.1% OINTMENT SCH (08:47)
[2018-09-28] MEDS: LAC-HYDRIN 12% LOTION TOP SCH ×3 (08:47→16:54)
[2018-09-28] MEDS ORDERED: FLOMAX PO ONE (12:42)
[2018-09-28] MEDS ORDERED: AVODART PO SCH (12:45)
--- NOTE | 2018-09-28 12:46 | GASTROENTEROLOGY PROGRESS NOTE ---
DATE: 09/28/2018 SUBJECTIVE: Resting in bed. He denies any active bleeding. He is feeling better. He is having liquid stools. OBJECTIVE: Vital signs: Temperature 97.9, pulse rate of 48, respiratory rate of 17, blood pressure 101/40, saturating 90% on room air. General Appearance: Moderately built, well nourished, lying in bed, in no acute distress. HEENT: Pale conjunctivae. No icterus. Neck: Supple. Abdomen: Soft, nontender, nondistended. Extremities: No cyanosis, clubbing. Neurological: He was sleepy, but was able to wake up on commands and answer simple questions. DIAGNOSTIC STUDIES: Hemoglobin is 8.2, hematocrit 26, white count of 6.1, platelet count of 257,000. Sodium 140, potassium 3.1, chloride 103, bicarbonate 29, anion gap of 11, BUN of 10, creatinine 1.5, glucose of 123, calcium 8.3. Blood culture x2 negative at 48 hours. IMPRESSION AND PLAN: 1. Post polypectomy bleeding at the cecal level. Continue to watch the blood counts and transfuse as needed. 2. History of atrial fibrillation. His anticoagulation has been withheld. 3. Coronary artery disease, stable. 4. History of previous cerebrovascular accident (CVA). Aware. 5. BPH. He is on Flomax. 6. Congestive heart failure. Aware. 7. Gastrointestinal (GI) prophylaxis with Prilosec. 8. Anemia. We will start him on Iron C b.i.d. and multivitamin once daily. His blood counts are stable. The above plans with the patient and all questions were answered. cc: MD Liban Arenas MD
--- NOTE | 2018-09-28 14:04 | DISCHARGE SUMMARY ---
ADMISSION DATE: 09/23/2018 DISCHARGE DATE: 09/28/2018 DISPOSITION: Disposition is back to [facility]. FOLLOW-UP: Follow up will be with the rehab medical staff, Dr. Perry. CONSULTATION DURING THIS ADMISSION: GI was consulted. Patient was seen by Susannah Baxter and Monica. INVASIVE PROCEDURES DONE DURING THIS ADMISSION: Colonoscopy was done with control of bleeding from cecal polypectomy (epinephrine and 2 hemoclips were applied). ADMISSION DIAGNOSES: 1. Gastrointestinal bleed on Xarelto. 2. Chronic atrial fibrillation. 3. Coronary artery disease. 4. Hypertension. 5. Dyslipidemia. 6. Chronic, chronic kidney disease. DIAGNOSES AT THE TIME OF DISCHARGE: 1. Post polypectomy bleed at the cecal level, status post colonoscopy, epinephrine injection and hemoclip application. 2. History of atrial fibrillation currently rate controlled. Anticoagulation has been withheld because of gastrointestinal bleed. 3. History of coronary artery disease. 4. History of cerebrovascular accident. 5. Benign prostatic hyperplasia with frequent urinary retention. Patient's Flomax has been increased and Avodart has been added. Patient has had transurethral resection of the prostate in the past before, and he said he used to follow up with Dr. Rucker. We have advised that he continue to follow up with Urology. 6. Congestive heart failure with preserved ejection fraction. 7. History of left upper lobe adenocarcinoma. The patient follows up with Dr. Perry. 8. Status post basal cell carcinoma on the chest wall. Pathology reveals negative margins. 9. Chronic obstructive pulmonary disease, currently not in any exacerbation. 10. Diabetes mellitus controlled on oral hypoglycemic agents. 11. Chronic kidney disease stage IIIB. 12. Dyslipidemia. DISCHARGE MEDICATIONS: 1. Digoxin 125 p.o. daily. 2. Allopurinol 3 300 daily. 3. Atorvastatin 40 mg at bedtime. 4. Levothyroxine 50 mcg daily. 5. Calcitriol 0.25 p.o. daily. 6. Lexapro 10 mg daily. 7. Chlorthalidone 12.5 daily. 8. Tamsulosin 0.8 p.o. daily. 9. Alprazolam 0.25 b.i.d. 10. Furosemide 20 mg daily. 11. Diltiazem 180 mg daily. 12. Depakote 250 p.o. at bedtime. 13. Glimepiride 2 mg daily. 14. Melatonin 10 mg p.o. at bedtime. 15. Buspirone 5 mg b.i.d. 16. Omeprazole 40 mg daily. 17. Avodart 0.5 p.o. daily. 18. Iron 1 tablet daily. 19. Multivitamin 1 tablet daily. PRESENTING COMPLAINT: Blood in stool, not feeling well. HISTORY OF PRESENTING COMPLAINT: Mr. Vincent is an 78-year-old gentleman, resident of [facility] with history of chronic atrial fibrillation on Xarelto, coronary artery disease, congestive heart failure, CKD. The patient presented to the emergency department because of rectal bleeding. He has just recently done colonoscopy with polypectomy and subsequently he started having GA bleed. Upon presentation, patient was evaluated and admitted for further medical evaluation. HOSPITAL COURSE: Mr. Vincent was admitted to [facility], was adequately hydrated, was group and crossmatched, and was given 2 units of PRBC transfusion. GI was consulted. Patient was seen by Dr. Estevez, and a colonoscopy was done. Please refer to the details of the findings in the chart. Briefly the polypectomy site was found to be bleeding at the cecal level where epinephrine was injected and 2 hemoclips were applied. Subsequently Mr. Vincent continued to be stable. There were 2 occasions whereby he had dark stools, but his H and H has been fairly stable, and he has not been showing any more overt signs of GA bleed. Mr. Vincent's medications were all restarted, except his Xarelto, which has been withheld, and we have advised that he follows up with his elevator inspector to restart this at a later date when he is fairly stable from a GI standpoint. Mr. Vincent also has a lot of other comorbidities, all of them are chronic and they have all been stable. His home medications have all been restarted, and he has been tolerating them without any complications. Today, he did have an episode where he was not able to pee. However, we know he has a history of BPH and he has had TURP in the past, and he has had this on-and -off urinary retention. He is on tamsulosin 0.4. I have gone up on that to 0.8. I have also added Avodart and we have advised that the patient follow up with his urologist on outpatient basis. This morning Mr. Vincent is fairly stable. His vitals: Blood pressure is 116/58 with a pulse of 55, respiration is 15 and temperature 97.8 degrees. Physical exam is unremarkable. He is in a stable condition for discharge back to his [facility]. We have restarted all his home medications, except the anticoagulation, which will be started at a later date with permission from . All the discharge instructions have been discussed with him and he voiced understanding. TIME SPENT FOR DISCHARGE: 36 minutes. cc: Liban Gu MD [facility] MD Tino Ramsey MD Manish Arora, MD MTDD
[2018-09-28 16:35] VITALS: BP 109/49
[2018-09-29] MEDS ORDERED: FLOMAX PO SCH (09:00)
== END 2018-09-28 18:29 | DRG 920 ==
LOC: ED 03:52 → SUATTDRO 07:46 → EDIPHOLD 07:46 → 3S 08:40
PROVIDERS: ATTEND Internal Medicine
CPT/HCPCS: 36430; 51701; 71010; 71045; 80048; 80053; 81001; 82550; 82948; 83605; 84484; 85014; 85018; 85025; 85610; 85730; 86850; 86900; 86901; 86920; 87040; 94761; 97116; 97162; 97530; 99285; A9270; J0171; J2370; J7030; P9016; XXXXX